=== PATIENT | female | born 1950 | race Caucasian/White ===

== ENCOUNTER 2016-05-09 13:47 | Outpatient (CLI) | payer MEDICARE, BC, OTHER | END 2016-05-09 23:59 | DX: E11.9 Type 2 diabetes mellitus without complications (principal) ==

== ENCOUNTER 2016-11-04 07:10 | Outpatient (CLI) | payer MEDICARE, BC, OTHER ==
[2016-11-04 19:03] LABS: CALCIUM 8.9 mg/dL (8.5-10.3); POTASSIUM 4.1 mmol/L (3.5-5.0)
[2016-11-04 19:23] LABS: HEMOGLOBIN A1C 0.83 g/dL
== END 2016-11-04 07:11 | disposition home or self-care (01) ==
LOC: LAB.WCP 07:10
PROVIDERS: ATTEND Family Medicine
DX: E11.9 Type 2 diabetes mellitus without complications (principal)
CPT/HCPCS: 36415; 80048; 82043; 83036

== ENCOUNTER 2017-01-09 13:14 | Outpatient (CLI) | payer MEDICARE, BC, OTHER ==
--- NOTE | 2017-01-09 15:54 | Mammography Report ---
DIGITAL DIAGNOSTIC LEFT MAMMOGRAM: 01/09/2017 CLINICAL INDICATION: Possible developing density left upper outer posterior breast. TECHNIQUE: Left true lateral and spot compression views. COMPARISON: 12/19/2016, 12/10/2015, 08/27/2014, 08/06/2013, 06/06/2012, 05/09/2011, 02/19/2010 FINDINGS: The left breast again demonstrates heterogeneously dense fibroglandular parenchyma. The d ensity in question dissipated on additional compression. No underlying mass lesion or architectural distortion is seen. IMPRESSION: BENIGN FINDINGS. RECOMMENDATION: Routine annual screening unless otherwise clinically indicated. BIRADS CATEGORY 2 - BENIGN FINDINGS. STANDARD QUALIFYING STATEMENTS 1. This examination was reviewed with the aid of Computer-Aided Detection (CAD). 2. A negative or benign imaging report should not delay biopsy if clinically suspicious findings are present. Consider surgical consultation if warranted. More than 5% of cancers are not identified by i maging. 3. Dense breasts may obscure an underlying neoplasm. JOB #: [id number] EXT JOB #:[id number]
== END 2017-01-09 13:15 | disposition home or self-care (01) ==
LOC: DI 13:14
PROVIDERS: ATTEND Family Medicine
DX: R92.8 Other abnormal and inconclusive findings on diagnostic imaging of breast (principal)

== ENCOUNTER 2017-01-25 14:40 | Outpatient (CLI) | payer MEDICARE, BC, OTHER | END 2017-01-25 14:41 | disposition home or self-care (01) | LOC: LAB.WCP 14:40 | PROVIDERS: ATTEND Family Medicine | DX: A04.71 Enterocolitis due to Clostridium difficile, recurrent (principal) | CPT/HCPCS: 87493 ==

== ENCOUNTER 2018-01-09 08:00 | Outpatient (CLI) | payer MEDICARE, BC, OTHER ==
[2018-01-09 19:24] LABS: BASOPHILS # (AUTO) 0.1 10^3/uL (0.0-0.1); BASOPHILS % (AUTO) 0.5 %; EOSINOPHILS # (AUTO) 0.2 10^3/uL (0.0-0.7); EOSINOPHILS % (AUTO) 2.2 %; HGB - HEMOGLOBIN 13.7 g/dL (12.0-16.0); LYMPHOCYTES # (AUTO) 2.9 10^3/uL (1.5-3.5); LYMPHOCYTES % (AUTO) 26.1 %; MEAN CORPUSCULAR HEMOGLOBIN 30.5 pg (27.0-31.0); MEAN CORPUSCULAR HGB CONC 32.3 g/dL (32.0-36.0); MEAN CORPUSCULAR VOLUME 94.3 fL (81.0-99.0); MEAN PLATELET VOLUME 7.8 fL (7.9-10.8); MONOCYTES # (AUTO) 0.7 10^3/uL (0.0-1.0); MONOCYTES % (AUTO) 6.3 %; NEUTROPHILS # (AUTO) 7.3 10^3/uL (1.5-6.6); NEUTROPHILS % (AUTO) 64.9 %; PLT - PLATELET COUNT 279 10^3/uL (130-450); RED BLOOD COUNT 4.51 10^6/uL (4.20-5.40); RED CELL DISTRIBUTION WIDTH 13.9 % (12.0-15.0); WHITE BLOOD COUNT 11.2 x10^3/uL (4.8-10.8)
[2018-01-09 19:45] LABS: ALBUMIN 3.6 g/dL (3.2-5.5); ALBUMIN/GLOBULIN RATIO 0.9 (1.0-2.2); ALKALINE PHOSPHATASE 113 IU/L (42-121); ALT ALANINE AMINOTRANSFERASE 40 IU/L (10-60); AST ASPARTATE AMINOTRANSFERASE 52 IU/L (10-42); BILIRUBIN,TOTAL 1.3 mg/dL (0.2-1.0); BUN - BLOOD UREA NITROGEN 12 mg/dL (6-20); CALCIUM 8.5 mg/dL (8.5-10.3); CARBON DIOXIDE - CO2 27 mmol/L (21-32); CHLORIDE 102 mmol/L (101-111); CHOL/HDL RATIO 2.7 (<4.4); CHOLESTEROL 170 mg/dL; CREATININE 0.9 mg/dL (0.4-1.0); GFR - MDRD 62 (>89); GLUCOSE 130 mg/dL (70-100); HDL CHOLESTEROL 62 mg/dL; LDL CHOLESTEROL,CALCULATED 84 mg/dL; LDL/HDL RATIO 1.4 (<4.4); SODIUM 138 mmol/L (135-145); TOTAL PROTEIN 7.7 g/dL (6.7-8.2); VLDL CHOLESTEROL 24 mg/dL
[2018-01-09 19:57] LABS: HB2 TOTAL 14.5 g/dL; HEMOGLOBIN A1C 1.03 g/dL; HEMOGLOBIN A1C % 8.6 % (4.6-6.2)
== END 2018-01-09 23:59 | disposition home or self-care (01) ==
LOC: LAB.WCP 08:00
PROVIDERS: ATTEND Family Medicine
DX: E11.9 Type 2 diabetes mellitus without complications (principal)
CPT/HCPCS: 36415; 80053; 80061; 82043; 83036; 83721; 84443; 85025

== ENCOUNTER 2018-02-16 09:39 | Outpatient (CLI) | payer MEDICARE, BC, OTHER ==
--- NOTE | 2018-02-19 09:15 | Mammography Report ---
Reason: SCREENING MAMMO Procedure Date: 02/16/2018 Accession Number: [id number] / [id number] Procedure: GUS - Screening Mammo w/Daniel CPT Code: FULL RESULT: EXAM: Screening Mammo w/Daniel DATE: 02/16/2018 10:18 AM CLINICAL HISTORY: Screening encounter. History of nulliparity. Family history of breast cancer in a sister at the age of 51. TECHNIQUE: Bilateral CC and MLO views were obtained. COMPARISON: 01/09/2017 through 08/08/2013. FINDINGS: The breasts demonstrate scattered fibroglandular densities bilaterally. There are coarse typically benign calcifications. No suspicious masses, clustered microcalcifications, or regions of architectural distortion are identified. IMPRESSION: Benign findings RECOMMENDATION: Routine annual screening unless otherwise clinically indicated. BIRADS CATEGORY 2: Benign findings STANDARD QUALIFYING STATEMENTS: 1. This examination was not reviewed with the aid of Computer-Aided Detection (CAD). 2. A negative or benign imaging report should not preclude biopsy if clinically suspicious findings are present. 3. Dense breasts may obscure an underlying neoplasm. 4. This examination was reviewed with the aid of 3D breast imaging (tomosynthesis).
== END 2018-02-16 09:40 | disposition home or self-care (01) ==
LOC: DI 09:39
DX: Z12.31 Encounter for screening mammogram for malignant neoplasm of breast (principal); Z80.3 Family history of malignant neoplasm of breast
CPT/HCPCS: 77063; 77067

== ENCOUNTER 2018-04-11 11:10 | Outpatient (CLI) | payer MEDICARE, BC, OTHER ==
[2018-04-11 19:25] LABS: HB2 TOTAL 15.5 g/dL; HEMOGLOBIN A1C 1.15 g/dL; HEMOGLOBIN A1C % 8.9 % (4.6-6.2)
[2018-04-11 19:27] LABS: CALCIUM 8.9 mg/dL (8.5-10.3)
== END 2018-04-11 23:59 | disposition home or self-care (01) ==
LOC: LAB.WCP 11:10
PROVIDERS: ATTEND Family Medicine
DX: E11.9 Type 2 diabetes mellitus without complications (principal)
CPT/HCPCS: 36415; 80048; 83036

== ENCOUNTER 2018-04-30 09:00 | Outpatient (CLI) | payer MEDICARE, BC, OTHER ==
[2018-04-30 19:36] LABS: CALCIUM 8.9 mg/dL (8.5-10.3); CREATININE 1.2 mg/dL (0.4-1.0)
== END 2018-04-30 09:01 | disposition home or self-care (01) ==
LOC: LAB.WCP 09:00
PROVIDERS: ATTEND Family Medicine
DX: I10 Essential (primary) hypertension (principal)
CPT/HCPCS: 36415; 80048

== ENCOUNTER 2018-06-27 08:00 | Outpatient (CLI) | payer MEDICARE, BC, OTHER ==
[2018-06-27 19:03] LABS: HB2 TOTAL 13.8 g/dL; HEMOGLOBIN A1C 1.16 g/dL; HEMOGLOBIN A1C % 9.8 % (4.6-6.2)
[2018-06-27 19:04] LABS: ALBUMIN 3.8 g/dL (3.2-5.5); BILIRUBIN,TOTAL 0.9 mg/dL (0.2-1.0); CALCIUM 9.1 mg/dL (8.5-10.3); CREATININE 1.3 mg/dL (0.4-1.0); TOTAL PROTEIN 7.6 g/dL (6.7-8.2)
== END 2018-06-27 08:01 | disposition home or self-care (01) ==
LOC: LAB.WCP 08:00
PROVIDERS: ATTEND Family Medicine
DX: E11.65 Type 2 diabetes mellitus with hyperglycemia (principal)
CPT/HCPCS: 36415; 80053; 83036

== ENCOUNTER 2018-09-12 | Day surgery (SDC) | payer MEDICARE, BC, OTHER | END 2018-09-12 13:40 | disposition home or self-care (01) | PROC: 0DBN8ZZ Excision of Sigmoid Colon, Via Natural or Artificial Opening Endoscopic (ICD-10-PCS; principal; 2018-09-12) | DX: Z12.11 Encounter for screening for malignant neoplasm of colon (principal); D12.5 Benign neoplasm of sigmoid colon; G47.30 Sleep apnea, unspecified; E11.9 Type 2 diabetes mellitus without complications; I10 Essential (primary) hypertension; Z79.4 Long term (current) use of insulin; F43.10 Post-traumatic stress disorder, unspecified; Z90.49 Acquired absence of other specified parts of digestive tract | CPT/HCPCS: 45380; J7120 ==

== ENCOUNTER 2018-09-20 12:29 | Outpatient (CLI) | payer MEDICARE, BC, OTHER ==
[2018-09-20 18:46] LABS: BASOPHILS % (AUTO) 0.3 %; EOSINOPHILS # (AUTO) 0.2 10^3/uL (0.0-0.7); EOSINOPHILS % (AUTO) 1.5 %; HGB - HEMOGLOBIN 12.5 g/dL (12.0-16.0); LYMPHOCYTES # (AUTO) 2.1 10^3/uL (1.5-3.5); LYMPHOCYTES % (AUTO) 20.4 %; MEAN CORPUSCULAR HEMOGLOBIN 30.4 pg (27.0-31.0); MEAN CORPUSCULAR HGB CONC 30.9 g/dL (32.0-36.0); MEAN CORPUSCULAR VOLUME 98.5 fL (81.0-99.0); MEAN PLATELET VOLUME 9.4 fL (7.9-10.8); MONOCYTES # (AUTO) 0.6 10^3/uL (0.0-1.0); MONOCYTES % (AUTO) 5.6 %; NEUTROPHILS # (AUTO) 7.3 10^3/uL (1.5-6.6); NEUTROPHILS % (AUTO) 71.8 %; PLT - PLATELET COUNT 277 10^3/uL (130-450); RED BLOOD COUNT 4.11 10^6/uL (4.20-5.40); RED CELL DISTRIBUTION WIDTH 12.9 % (12.0-15.0); WHITE BLOOD COUNT 10.2 x10^3/uL (4.8-10.8)
[2018-09-20 19:04] LABS: ALBUMIN 3.8 g/dL (3.2-5.5); ALKALINE PHOSPHATASE 122 IU/L (42-121); ALT ALANINE AMINOTRANSFERASE 38 IU/L (10-60); AST ASPARTATE AMINOTRANSFERASE 39 IU/L (10-42); BILIRUBIN,TOTAL 0.9 mg/dL (0.2-1.0); BUN - BLOOD UREA NITROGEN 19 mg/dL (6-20); CALCIUM 9.1 mg/dL (8.5-10.3); CARBON DIOXIDE - CO2 27 mmol/L (21-32); CHLORIDE 102 mmol/L (101-111); CHOL/HDL RATIO 2.7 (<4.4); CHOLESTEROL 155 mg/dL; CREATININE 1.3 mg/dL (0.4-1.0); GFR - MDRD 41 (>89); GLUCOSE 134 mg/dL (70-100); HDL CHOLESTEROL 57 mg/dL; LDL CHOLESTEROL,CALCULATED 79 mg/dL; LDL/HDL RATIO 1.4 (<4.4); SODIUM 140 mmol/L (135-145); TOTAL PROTEIN 7.7 g/dL (6.7-8.2); VLDL CHOLESTEROL 19 mg/dL
[2018-09-20 19:16] LABS: HB2 TOTAL 13.6 g/dL; HEMOGLOBIN A1C 0.95 g/dL; HEMOGLOBIN A1C % 8.5 % (4.6-6.2)
[2018-09-20 20:19] LABS: CREATININE,URINE 64.5 mg/dL; MICROALBUM/CREATININE RATIO,UR 6.2 ug/mg (<30.0); MICROALBUMIN,URINE 0.4 mg/dL (0-300.0)
== END 2018-09-20 23:59 | disposition home or self-care (01) ==
LOC: LAB.WCP 12:29
PROVIDERS: ATTEND Family Medicine
DX: E11.9 Type 2 diabetes mellitus without complications (principal)
CPT/HCPCS: 36415; 80053; 80061; 82043; 82570; 83036; 83721; 85025

== ENCOUNTER 2018-12-19 11:38 | Outpatient (CLI) | payer MEDICARE, BC, OTHER ==
[2018-12-19 19:27] LABS: HEMOGLOBIN A1C 0.99 g/dL; HEMOGLOBIN A1C % 9.1 % (4.6-6.2)
[2018-12-19 19:28] LABS: CREATININE 1.4 mg/dL (0.4-1.0)
== END 2018-12-19 23:59 | disposition home or self-care (01) ==
LOC: LAB.WCP 11:38
PROVIDERS: ATTEND Family Medicine
DX: E11.65 Type 2 diabetes mellitus with hyperglycemia (principal)
CPT/HCPCS: 36415; 80048; 83036

== ENCOUNTER 2019-03-20 12:31 | Outpatient (CLI) | payer MEDICARE, BC, OTHER ==
[2019-03-20 19:39] LABS: HB2 TOTAL 12.6 g/dL; HEMOGLOBIN A1C 0.73 g/dL; HEMOGLOBIN A1C % 7.5 % (4.6-6.2)
[2019-03-20 19:48] LABS: ALBUMIN 3.8 g/dL (3.2-5.5); ALKALINE PHOSPHATASE 128 IU/L (42-121); ALT ALANINE AMINOTRANSFERASE 28 IU/L (10-60); AST ASPARTATE AMINOTRANSFERASE 35 IU/L (10-42); BILIRUBIN,TOTAL 1.3 mg/dL (0.2-1.0); BUN - BLOOD UREA NITROGEN 19 mg/dL (6-20); CALCIUM 8.7 mg/dL (8.5-10.3); CARBON DIOXIDE - CO2 25 mmol/L (21-32); CHLORIDE 99 mmol/L (101-111); CHOL/HDL RATIO 2.9 (<4.4); CHOLESTEROL 164 mg/dL; CREATININE 1.6 mg/dL (0.4-1.0); CREATININE,URINE 274.6 mg/dL; GFR - MDRD 32 (>89); GLUCOSE 171 mg/dL (70-100); HDL CHOLESTEROL 56 mg/dL; LDL CHOLESTEROL,CALCULATED 87 mg/dL; LDL/HDL RATIO 1.6 (<4.4); MICROALBUM/CREATININE RATIO,UR 17.5 ug/mg (<30.0); MICROALBUMIN,URINE 4.8 mg/dL (0-300.0); SODIUM 137 mmol/L (135-145); TOTAL PROTEIN 7.5 g/dL (6.7-8.2); VLDL CHOLESTEROL 21 mg/dL
== END 2019-03-20 23:59 | disposition home or self-care (01) ==
LOC: LAB.WCP 12:31
PROVIDERS: ATTEND Family Medicine
DX: E11.65 Type 2 diabetes mellitus with hyperglycemia (principal)
CPT/HCPCS: 36415; 80053; 80061; 82043; 82570; 83036; 83721

== ENCOUNTER 2019-04-05 10:52 | Outpatient (CLI) | payer MEDICARE, BC, OTHER ==
--- NOTE | 2019-04-16 09:56 | Mammography Report ---
Reason: ROUTINE MAMMO Procedure Date: 04/05/2019 Accession Number: [id number] / [id number] Procedure: MGN - Screening Mammo w/Daniel CPT Code: Final Report FULL RESULT: EXAM: Screening Mammo w/Daniel DATE: 04/05/2019 11:29 AM CLINICAL HISTORY: Screening encounter. History of nulliparity. Family history of breast cancer in a sister at the age of 51. TECHNIQUE: (B) - Bilateral CC and MLO views were obtained. Right laterally exaggerated CC view is obtained. COMPARISON: 02/16/2018 through 06/06/2012. PARENCHYMAL PATTERN: (D) - The breast(s) demonstrate(s) heterogeneously dense fibroglandular parenchyma. FINDINGS: There are no suspicious masses, calcifications, or areas of distortion. IMPRESSION: Negative examination. BI-RADS category 1. RECOMMENDATION: (ANNUAL) - Recommend routine annual screening mammography. BI-RADS CATEGORY: (1) - Negative. STANDARD QUALIFYING STATEMENTS: 1. This examination was not reviewed with the aid of Computer-Aided Detection (CAD). 2. A negative or benign imaging report should not preclude biopsy if clinically suspicious findings are present. 3. Dense breasts may obscure an underlying neoplasm. 4. This examination was reviewed with the aid of 3D breast imaging (tomosynthesis).
== END 2019-04-05 10:53 | disposition home or self-care (01) ==
LOC: DI.N 10:52
DX: Z12.31 Encounter for screening mammogram for malignant neoplasm of breast (principal); Z80.3 Family history of malignant neoplasm of breast
CPT/HCPCS: 77063; 77067

== ENCOUNTER 2019-06-18 08:00 | Outpatient (CLI) | payer MEDICARE, BC, OTHER ==
[2019-06-18 13:25] LABS: CALCIUM 8.6 mg/dL (8.5-10.3); CREATININE 1.6 mg/dL (0.4-1.0)
[2019-06-18 13:46] LABS: HB2 TOTAL 13.4 g/dL; HEMOGLOBIN A1C 0.66 g/dL; HEMOGLOBIN A1C % 6.7 % (4.6-6.2)
== END 2019-06-18 23:59 | disposition home or self-care (01) ==
LOC: LAB.WCP 08:00
PROVIDERS: ATTEND Family Medicine
DX: E11.65 Type 2 diabetes mellitus with hyperglycemia (principal)
CPT/HCPCS: 36415; 80048; 83036

== ENCOUNTER 2019-09-20 07:00 | Outpatient (CLI) | payer MEDICARE, BC, OTHER ==
[2019-09-20 18:29] LABS: BASOPHILS # (AUTO) 0.1 10^3/uL (0.0-0.1); BASOPHILS % (AUTO) 0.7 %; EOSINOPHILS # (AUTO) 0.3 10^3/uL (0.0-0.7); EOSINOPHILS % (AUTO) 2.6 %; HGB - HEMOGLOBIN 12.9 g/dL (12.0-16.0); LYMPHOCYTES # (AUTO) 1.7 10^3/uL (1.5-3.5); LYMPHOCYTES % (AUTO) 16.3 %; MEAN CORPUSCULAR HEMOGLOBIN 30.6 pg (27.0-31.0); MEAN CORPUSCULAR HGB CONC 31.1 g/dL (32.0-36.0); MEAN CORPUSCULAR VOLUME 98.6 fL (81.0-99.0); MEAN PLATELET VOLUME 9.6 fL (7.9-10.8); MONOCYTES # (AUTO) 0.7 10^3/uL (0.0-1.0); MONOCYTES % (AUTO) 6.5 %; NEUTROPHILS # (AUTO) 7.8 10^3/uL (1.5-6.6); NEUTROPHILS % (AUTO) 73.5 %; PLT - PLATELET COUNT 294 10^3/uL (130-450); RED BLOOD COUNT 4.21 10^6/uL (4.20-5.40); RED CELL DISTRIBUTION WIDTH 13.2 % (12.0-15.0); WHITE BLOOD COUNT 10.6 x10^3/uL (4.8-10.8)
[2019-09-20 19:03] LABS: ALBUMIN 3.6 g/dL (3.2-5.5); ALBUMIN/GLOBULIN RATIO 0.9 (1.0-2.2); ALKALINE PHOSPHATASE 147 IU/L (42-121); ALT ALANINE AMINOTRANSFERASE 20 IU/L (10-60); AST ASPARTATE AMINOTRANSFERASE 24 IU/L (10-42); BILIRUBIN,TOTAL 0.8 mg/dL (0.2-1.0); BUN - BLOOD UREA NITROGEN 24 mg/dL (6-20); CALCIUM 8.7 mg/dL (8.5-10.3); CARBON DIOXIDE - CO2 28 mmol/L (21-32); CHLORIDE 99 mmol/L (101-111); CHOL/HDL RATIO 2.9 (<4.4); CHOLESTEROL 165 mg/dL; CREATININE 1.7 mg/dL (0.4-1.0); GLUCOSE 143 mg/dL (70-100); HDL CHOLESTEROL 56 mg/dL; LDL CHOLESTEROL,CALCULATED 88 mg/dL; LDL/HDL RATIO 1.6 (<4.4); SODIUM 134 mmol/L (135-145); TOTAL PROTEIN 7.6 g/dL (6.7-8.2); VLDL CHOLESTEROL 21 mg/dL
[2019-09-20 19:16] LABS: HB2 TOTAL 13.9 g/dL; HEMOGLOBIN A1C 0.63 g/dL; HEMOGLOBIN A1C % 6.3 % (4.6-6.2)
== END 2019-09-20 23:59 | disposition home or self-care (01) ==
LOC: LAB.WCP 07:00
PROVIDERS: ATTEND Family Medicine
DX: E11.9 Type 2 diabetes mellitus without complications (principal)
CPT/HCPCS: 36415; 80053; 80061; 83036; 83721; 85025

== ENCOUNTER 2019-11-01 07:00 | Outpatient (CLI) | payer MEDICARE, BC, OTHER | END 2019-11-01 23:59 | disposition home or self-care (01) | LOC: LAB.R 07:00 | PROVIDERS: ATTEND Family Medicine | DX: R35.0 Frequency of micturition (principal) | CPT/HCPCS: 87086 ==

== ENCOUNTER 2019-12-19 08:00 | Outpatient (CLI) | payer MEDICARE, BC, OTHER ==
[2019-12-19 18:52] LABS: CALCIUM 8.7 mg/dL (8.5-10.3); CREATININE 1.7 mg/dL (0.4-1.0)
[2019-12-19 19:08] LABS: MICROALBUM/CREATININE RATIO,UR 3.8 ug/mg (<30.0); MICROALBUMIN,URINE 0.7 mg/dL (0-300.0)
[2019-12-19 20:02] LABS: HEMOGLOBIN A1c% 6.1 % (4.27-6.07)
== END 2019-12-19 23:59 | disposition home or self-care (01) ==
LOC: LAB.WCP 08:00
PROVIDERS: ATTEND Family Medicine
DX: E11.9 Type 2 diabetes mellitus without complications (principal)
CPT/HCPCS: 36415; 80048; 82043; 82570; 83036

== ENCOUNTER 2020-05-14 07:00 | Outpatient (CLI) | payer MEDICARE, BC, OTHER ==
[2020-05-14 17:39] LABS: BASOPHILS # (AUTO) 0.1 10^3/uL (0.0-0.1); BASOPHILS % (AUTO) 0.6 %; EOSINOPHILS # (AUTO) 0.2 10^3/uL (0.0-0.7); EOSINOPHILS % (AUTO) 2.1 %; HCT - HEMATOCRIT 40.7 % (37.0-47.0); HGB - HEMOGLOBIN 12.8 g/dL (12.0-16.0); LYMPHOCYTES # (AUTO) 2.7 10^3/uL (1.5-3.5); LYMPHOCYTES % (AUTO) 25.8 %; MEAN CORPUSCULAR HEMOGLOBIN 30.3 pg (27.0-31.0); MEAN CORPUSCULAR HGB CONC 31.4 g/dL (32.0-36.0); MEAN CORPUSCULAR VOLUME 96.2 fL (81.0-99.0); MEAN PLATELET VOLUME 9.4 fL (7.9-10.8); MONOCYTES # (AUTO) 0.8 10^3/uL (0.0-1.0); MONOCYTES % (AUTO) 7.9 %; NEUTROPHILS # (AUTO) 6.7 10^3/uL (1.5-6.6); NEUTROPHILS % (AUTO) 63.2 %; PLT - PLATELET COUNT 291 10^3/uL (130-450); RED BLOOD COUNT 4.23 10^6/uL (4.20-5.40); RED CELL DISTRIBUTION WIDTH 13.2 % (12.0-15.0); WHITE BLOOD COUNT 10.6 x10^3/uL (4.8-10.8)
[2020-05-14 18:07] LABS: ALBUMIN 3.9 g/dL (3.2-5.5); ALBUMIN/GLOBULIN RATIO 1.1 (1.0-2.2); ALKALINE PHOSPHATASE 143 IU/L (42-121); ALT ALANINE AMINOTRANSFERASE 19 IU/L (10-60); AST ASPARTATE AMINOTRANSFERASE 24 IU/L (10-42); BILIRUBIN,TOTAL 0.9 mg/dL (0.2-1.0); BUN - BLOOD UREA NITROGEN 25 mg/dL (6-20); CALCIUM 9.1 mg/dL (8.5-10.3); CARBON DIOXIDE - CO2 28 mmol/L (21-32); CHLORIDE 102 mmol/L (101-111); CHOL/HDL RATIO 2.8 (<4.4); CHOLESTEROL 165 mg/dL; CREATININE 1.8 mg/dL (0.4-1.0); GFR - MDRD 28 (>89); GLUCOSE 89 mg/dL (70-100); HDL CHOLESTEROL 60 mg/dL; LDL CHOLESTEROL,CALCULATED 87 mg/dL; LDL/HDL RATIO 1.5 (<4.4); POTASSIUM 4.4 mmol/L (3.5-5.0); SODIUM 138 mmol/L (135-145); TOTAL PROTEIN 7.6 g/dL (6.7-8.2); TRIGLYCERIDES 92 mg/dL; VLDL CHOLESTEROL 18 mg/dL
[2020-05-14 18:13] LABS: THYROID STIMULATING HORMONE 2.22 uIU/mL (0.34-5.60)
[2020-05-14 20:28] LABS: ESTIMATED AVERAGE GLUCOSE 143 mg/dL (70-100); HEMOGLOBIN A1c% 6.6 % (4.27-6.07)
== END 2020-05-14 23:59 | disposition home or self-care (01) ==
LOC: LAB.WCP 07:00
PROVIDERS: ATTEND Family Medicine
DX: E11.22 Type 2 diabetes mellitus with diabetic chronic kidney disease (principal); N18.30 Chronic kidney disease, stage 3 unspecified
CPT/HCPCS: 36415; 80053; 80061; 81001; 82043; 82570; 83036; 83721; 84443; 85025

== ENCOUNTER 2020-05-18 07:00 | Outpatient (CLI) | payer MEDICARE, BC, OTHER ==
[2020-05-18 18:59] LABS: BILIRUBIN,URINE NEGATIVE (NEGATIVE); GLUCOSE, URINE (UA) NEGATIVE (NEGATIVE); KETONES,URINE (UA) NEGATIVE (NEGATIVE); LEUKOCYTE ESTERASE, URINE MODERATE (NEGATIVE); NITRITE,URINE NEGATIVE (NEGATIVE); OCCULT BLOOD,URINE NEGATIVE (NEGATIVE); PH,URINE 5.5 PH (5.0-7.5); PROTEIN,URINE NEGATIVE (NEGATIVE); UROBILINOGEN,URINE 0.2 (NORMAL) E.U./dL (NORMAL)
[2020-05-18 19:02] LABS: CLARITY,URINE CLOUDY (CLEAR)
[2020-05-18 19:10] LABS: BACTERIA,URINE Many /HPF (None Seen); RBC,URINE 0-5 /HPF (0-5); SQUAMOUS EPITHELIAL CELL,UR MANY Squamous (<= Few); WBC,URINE >25 /HPF (0-5)
[2020-05-18 19:24] LABS: CREATININE,URINE 267.1 mg/dL; MICROALBUM/CREATININE RATIO,UR 15.7 ug/mg (<30.0); MICROALBUMIN,URINE 4.2 mg/dL (0-300.0)
== END 2020-05-18 23:59 | disposition home or self-care (01) ==
LOC: LAB.WCP 07:00
PROVIDERS: ATTEND Family Medicine
DX: E11.22 Type 2 diabetes mellitus with diabetic chronic kidney disease (principal); N18.30 Chronic kidney disease, stage 3 unspecified
CPT/HCPCS: 81001; 82043; 82570

== ENCOUNTER 2020-06-08 12:57 | Outpatient (CLI) | payer MEDICARE, BC, OTHER ==
--- NOTE | 2020-06-08 14:15 | DEXA Report ---
PROCEDURE: Dexa Spine and/or Hip INDICATIONS: OSTEOPENIA TECHNIQUE: Dual energy x-ray absorptiometry (DXA) was performed on a Deenty System. Regions measur ed are the AP Spine, femoral neck, and if needed forearm. COMPARISON: None. FINDINGS: Lumbar Spine: Bone Mineral Density 1.063 g/cm/cm,T score -1.0, compared to -0.8 Left Hip: Bone Mineral Density 0.837 g/cm/cm,T score -1.4, compared to -0.7 Left Femoral Neck: Bone Mineral Density 0.804 g/cm/cm, T score -1.7, compared to -1.0 (T score greater or equal to -1.0: NORMAL) (T score from -1.1 to -2.4: OSTEOPENIA) (T score less than or equal to -2.5 to: OSTEOPOROSIS) Impression: 1. Mild to moderate osteopenia within the left hip and femoral neck, progressive compared to prior ex am. Borderline osteopenia within the lumbar spine, also progressive. Patients with diagnosis of osteoporosis or osteopenia should have regular bone mineral density assess ment. For those eligible for Medicare, routine testing is allowed once every 2 years. Testing frequ ency can be increased for patients who have rapidly progressing disease or for those who are receivin g medical therapy to restore bone mass. Reviewed by: Radha Briseno MD on 06/08/2020 1:14 PM PABLO Approved by: Radha Briseno MD on 06/08/2020 1:14 PM PABLO Station ID: [id number]
== END 2020-06-08 12:58 | disposition home or self-care (01) ==
LOC: DI 12:57
PROVIDERS: ATTEND Family Medicine
DX: M85.89 Other specified disorders of bone density and structure, multiple sites (principal)

== ENCOUNTER 2020-06-29 14:11 | Outpatient (CLI) | payer MEDICARE, BC, OTHER ==
--- NOTE | 2020-06-30 12:18 | Mammography Report ---
BILATERAL DIGITAL SCREENING MAMMOGRAM 3D/2D: 06/29/2020 CLINICAL: Family history of breast cancer. Routine screening. Comparison is made to exams dated: 04/05/2019 mammogram, 02/16/2018 mammogram, 01/09/2017 mammogram, mammogram, 12/10/2015 mammogram, and 08/27/2014 mammogram - [facility]. The tissue of both breasts is heterogeneously dense. This may lower the sensitivity of mammography. There are benign calcifications in both breasts. No significant masses, calcifications, or other findings are seen in either breast. There has been no significant interval change. IMPRESSION: BENIGN There is no mammographic evidence of malignancy. A 1 year screening mammogram is recommended. This exam was interpreted at Station ID: [id number]. NOTE: For mammograms, a report in lay terms will be sent to the patient. Approximately 15% of breast malignancies will not be visualized mammographically. In the management of a palpable breast mass, a negative mammogram must not discourage biopsy of a clinically suspicious lesion. Electronically Signed By: Efrain Sifuentes M.D. ddp/penrad:06/29/2020 15:33:24 ACR BI-RADS Category 2: Benign Finding(s) 3342F PARENCHYMAL PATTERN: (D) - The breast(s) demonstrate(s) heterogeneously dense fibroglandular [place] ott. BI-RADS CATEGORY: (2) - 2 RECOMMENDATION: (ANNUAL) - Recommend routine annual screening mammography. [id number] 1 year screening LATERALITY: (B)
== END 2020-06-29 14:12 | disposition home or self-care (01) ==
LOC: DI 14:11
DX: Z12.31 Encounter for screening mammogram for malignant neoplasm of breast (principal); Z80.3 Family history of malignant neoplasm of breast

== ENCOUNTER 2020-08-14 13:18 | Outpatient (CLI) | payer MEDICARE, BC, OTHER ==
[2020-08-14 18:09] LABS: CALCIUM 8.5 mg/dL (8.5-10.3); CREATININE 1.5 mg/dL (0.4-1.0); POTASSIUM 4.1 mmol/L (3.5-5.0)
[2020-08-14 20:33] LABS: ESTIMATED AVERAGE GLUCOSE 117 mg/dL (70-100); HEMOGLOBIN A1c% 5.7 % (4.27-6.07)
== END 2020-08-14 23:59 | disposition home or self-care (01) ==
LOC: LAB.WCP 13:18
PROVIDERS: ATTEND Family Medicine
DX: E11.9 Type 2 diabetes mellitus without complications (principal)
CPT/HCPCS: 36415; 80048; 83036

== ENCOUNTER 2021-03-03 12:25 | Outpatient (CLI) | payer MEDICARE, BC, OTHER ==
[2021-03-03 18:29] LABS: BASOPHILS # (AUTO) 0.1 10^3/uL (0.0-0.1); BASOPHILS % (AUTO) 0.4 %; EOSINOPHILS # (AUTO) 0.3 10^3/uL (0.0-0.7); EOSINOPHILS % (AUTO) 2.2 %; HCT - HEMATOCRIT 40.5 % (37.0-47.0); LYMPHOCYTES # (AUTO) 1.8 10^3/uL (1.5-3.5); LYMPHOCYTES % (AUTO) 15.9 %; MEAN CORPUSCULAR HEMOGLOBIN 30.6 pg (27.0-31.0); MEAN CORPUSCULAR HGB CONC 32.1 g/dL (32.0-36.0); MEAN CORPUSCULAR VOLUME 95.3 fL (81.0-99.0); MEAN PLATELET VOLUME 9.1 fL (7.9-10.8); MONOCYTES # (AUTO) 0.9 10^3/uL (0.0-1.0); MONOCYTES % (AUTO) 7.6 %; NEUTROPHILS # (AUTO) 8.2 10^3/uL (1.5-6.6); NEUTROPHILS % (AUTO) 73.5 %; PLT - PLATELET COUNT 312 10^3/uL (130-450); RED BLOOD COUNT 4.25 10^6/uL (4.20-5.40); RED CELL DISTRIBUTION WIDTH 13.2 % (12.0-15.0); WHITE BLOOD COUNT 11.1 x10^3/uL (4.8-10.8)
[2021-03-03 19:00] LABS: ALBUMIN 3.5 g/dL (3.2-5.5); ALBUMIN/GLOBULIN RATIO 0.9 (1.0-2.2); ALKALINE PHOSPHATASE 116 IU/L (42-121); ALT ALANINE AMINOTRANSFERASE 22 IU/L (10-60); AST ASPARTATE AMINOTRANSFERASE 23 IU/L (10-42); BILIRUBIN,TOTAL 0.8 mg/dL (0.2-1.0); BUN - BLOOD UREA NITROGEN 16 mg/dL (6-20); CARBON DIOXIDE - CO2 27 mmol/L (21-32); CHLORIDE 102 mmol/L (101-111); CHOL/HDL RATIO 2.6 (<4.4); CHOLESTEROL 163 mg/dL; CREATININE 1.5 mg/dL (0.4-1.0); GFR - MDRD 34 (>89); GLUCOSE 93 mg/dL (70-100); HDL CHOLESTEROL 62 mg/dL; LDL CHOLESTEROL,CALCULATED 82 mg/dL; LDL/HDL RATIO 1.3 (<4.4); POTASSIUM 4.1 mmol/L (3.5-5.0); SODIUM 138 mmol/L (135-145); TOTAL PROTEIN 7.4 g/dL (6.7-8.2); TRIGLYCERIDES 93 mg/dL; VLDL CHOLESTEROL 19 mg/dL
[2021-03-04 17:23] LABS: ESTIMATED AVERAGE GLUCOSE 128 mg/dL (70-100); HEMOGLOBIN A1c% 6.1 % (4.27-6.07)
== END 2021-03-03 23:59 | disposition home or self-care (01) ==
LOC: LAB.WCP 12:25
PROVIDERS: ATTEND Family Medicine
DX: E11.9 Type 2 diabetes mellitus without complications (principal)
CPT/HCPCS: 36415; 80053; 80061; 83036; 83721; 85025

== ENCOUNTER 2021-03-09 13:37 | Outpatient (CLI) | payer MEDICARE, BC, OTHER ==
--- NOTE | 2021-03-09 14:52 | XRAY Report ---
PROCEDURE: Chest 2 View X-Ray INDICATIONS: DYSPNEA ON EXERTION TECHNIQUE: 2 view(s) of the chest. COMPARISON: 10/13/2014. FINDINGS: Surgical changes and devices: None. Lungs and pleura: No pleural effusions or pneumothorax. Lungs are clear. Mediastinum: Mediastinal contours are normal. Heart size is normal. Bones and chest wall: No suspicious bony abnormalities. Soft tissues appear unremarkable. IMPRESSION: Stable examination of the chest. No acute cardiopulmonary abnormalities or focal airspac e disease. Reviewed by: Wiliam Reich MD on 03/09/2021 2:50 PM PST Approved by: Wiliam Reich MD on 03/09/2021 2:50 PM PST Station ID: [id number]
== END 2021-03-09 13:38 | disposition home or self-care (01) ==
LOC: DI.N 13:37
PROVIDERS: ATTEND Family Medicine
DX: R06.09 Other forms of dyspnea (principal)

== ENCOUNTER 2021-05-03 08:00 | Outpatient (CLI) | payer MEDICARE, BC, OTHER ==
[2021-05-03 22:50] LABS: BACTERIAL VAGINOSIS DNA NEGATIVE (NEGATIVE); CANDIDA GLABRATA DNA NEGATIVE (NEGATIVE); CANDIDA GROUP DNA NEGATIVE (NEGATIVE); CANDIDA KRUSEI DNA NEGATIVE (NEGATIVE); TRICHOMONAS VAGINALIS DNA NEGATIVE (NEGATIVE)
== END 2021-05-03 23:59 ==
LOC: LAB.N 08:00
PROVIDERS: ATTEND Family Medicine
DX: N76.0 Acute vaginitis (principal)
CPT/HCPCS: 87661; 87801

== ENCOUNTER 2021-05-05 12:15 | Outpatient (CLI) | payer MEDICARE, BC, OTHER ==
[2021-05-05 17:53] LABS: BASOPHILS # (AUTO) 0.1 10^3/uL (0.0-0.1); BASOPHILS % (AUTO) 0.5 %; EOSINOPHILS # (AUTO) 0.2 10^3/uL (0.0-0.7); EOSINOPHILS % (AUTO) 1.8 %; HCT - HEMATOCRIT 39.9 % (37.0-47.0); LYMPHOCYTES % (AUTO) 15.7 %; MEAN CORPUSCULAR HEMOGLOBIN 30.7 pg (27.0-31.0); MEAN CORPUSCULAR HGB CONC 32.6 g/dL (32.0-36.0); MEAN CORPUSCULAR VOLUME 94.3 fL (81.0-99.0); MEAN PLATELET VOLUME 9.1 fL (7.9-10.8); MONOCYTES # (AUTO) 0.8 10^3/uL (0.0-1.0); MONOCYTES % (AUTO) 6.4 %; NEUTROPHILS # (AUTO) 9.8 10^3/uL (1.5-6.6); NEUTROPHILS % (AUTO) 75.1 %; PLT - PLATELET COUNT 298 10^3/uL (130-450); RED BLOOD COUNT 4.23 10^6/uL (4.20-5.40); RED CELL DISTRIBUTION WIDTH 13.2 % (12.0-15.0)
[2021-05-05 18:15] LABS: ALBUMIN 3.7 g/dL (3.2-5.5); BILIRUBIN,TOTAL 0.8 mg/dL (0.2-1.0); CALCIUM 8.9 mg/dL (8.5-10.3); CREATININE 1.6 mg/dL (0.4-1.0); POTASSIUM 4.2 mmol/L (3.5-5.0); TOTAL PROTEIN 7.4 g/dL (6.7-8.2)
[2021-05-05 20:57] LABS: ESTIMATED AVERAGE GLUCOSE 126 mg/dL (70-100)
== END 2021-05-05 12:16 | disposition home or self-care (01) ==
LOC: LAB.N 12:15
PROVIDERS: ATTEND Family Medicine
DX: E11.9 Type 2 diabetes mellitus without complications (principal)
CPT/HCPCS: 36415; 80053; 83036; 85025

== ENCOUNTER 2021-10-16 14:54 | Outpatient (CLI) | payer MEDICARE, BC, OTHER ==
[2021-10-16 19:07] LABS: BASOPHILS # (AUTO) 0.1 10^3/uL (0.0-0.1); BASOPHILS % (AUTO) 0.4 %; EOSINOPHILS # (AUTO) 0.3 10^3/uL (0.0-0.7); EOSINOPHILS % (AUTO) 2.1 %; HCT - HEMATOCRIT 40.2 % (37.0-47.0); HGB - HEMOGLOBIN 12.6 g/dL (12.0-16.0); LYMPHOCYTES # (AUTO) 2.2 10^3/uL (1.5-3.5); LYMPHOCYTES % (AUTO) 14.9 %; MEAN CORPUSCULAR HEMOGLOBIN 29.4 pg (27.0-31.0); MEAN CORPUSCULAR HGB CONC 31.3 g/dL (32.0-36.0); MEAN CORPUSCULAR VOLUME 93.9 fL (81.0-99.0); MEAN PLATELET VOLUME 9.1 fL (7.9-10.8); MONOCYTES % (AUTO) 6.7 %; NEUTROPHILS % (AUTO) 75.5 %; PLT - PLATELET COUNT 291 10^3/uL (130-450); RED BLOOD COUNT 4.28 10^6/uL (4.20-5.40); RED CELL DISTRIBUTION WIDTH 14.3 % (12.0-15.0); WHITE BLOOD COUNT 14.5 x10^3/uL (4.8-10.8)
== END 2021-10-16 14:55 | disposition home or self-care (01) ==
LOC: LAB.N 14:54
PROVIDERS: ATTEND Physician Assistant
DX: D72.829 Elevated white blood cell count, unspecified (principal)
CPT/HCPCS: 36415; 85025

== ENCOUNTER 2021-10-20 13:29 | Outpatient (CLI) | payer MEDICARE, BC, OTHER ==
--- NOTE | 2021-10-21 12:34 | Mammography Report ---
BILATERAL DIGITAL SCREENING MAMMOGRAM 3D/2D: 10/20/2021 CLINICAL: Routine screening. Comparison is made to exams dated: 06/29/2020 mammogram, 04/05/2019 mammogram, 02/16/2018 mammogram, mammogram, and 12/19/2016 mammogram - [facility]. Both breasts are heterogeneously dense, which may obscure small masses (category c / 51-75% glandula r tissue). There are benign calcifications in both breasts. No significant masses, calcifications, or other findings are seen in either breast. There has been no significant interval change. IMPRESSION: BENIGN There is no mammographic evidence of malignancy. A 1 year screening mammogram is recommended. This exam was interpreted at Station ID: [id number]. NOTE: For mammograms, a report in lay terms will be sent to the patient. Approximately 15% of breast malignancies will not be visualized mammographically. In the management of a palpable breast mass, a negative mammogram must not discourage biopsy of a clinically suspicious lesion. Electronically Signed By: Wiliam richards/[place]:10/20/2021 17:48:07 ACR BI-RADS Category 2: Benign Finding(s) 3342F PARENCHYMAL PATTERN: (D) - The breast(s) demonstrate(s) heterogeneously dense fibroglandular vikram ott. BI-RADS CATEGORY: (2) - 2 RECOMMENDATION: (ANNUAL) - Recommend routine annual screening mammography. [id number] 1 year screening LATERALITY: (B)
== END 2021-10-20 13:30 | disposition home or self-care (01) ==
LOC: DI 13:29
PROVIDERS: ATTEND Physician Assistant
DX: Z12.31 Encounter for screening mammogram for malignant neoplasm of breast (principal)

== ENCOUNTER 2021-11-22 08:00 | Outpatient (CLI) | payer MEDICARE, BC, OTHER ==
--- NOTE | 2021-11-22 10:30 | XRAY Report ---
PROCEDURE: Ribs w/PA Chest RT INDICATIONS: R SIDED RIB PX TECHNIQUE: 2 views of the right ribs were acquired, along with a single view chest. COMPARISON: Chest radiographs 03/09/2021. FINDINGS: Surgical changes and devices: A radiopaque marker overlies the area of clinical concern. Surgical cli ps project over the right upper quadrant of the abdomen. Bones and chest wall: No fractures or dislocations. No suspicious bony lesions. Overlying soft tis sues appear unremarkable. Lungs and pleura: No pleural effusions or pneumothorax. Lungs appear clear. Mediastinum: Mediastinal contours appear normal. Heart size is normal. IMPRESSION: No acute displaced rib fracture visualized. CT of the chest could be obtained if clinically indicated . Reviewed by: Neel Navas MD on 11/22/2021 10:29 AM PDT Approved by: Neel Navas MD on 11/22/2021 10:29 AM PDT Station ID: [id number]
== END 2021-11-22 23:59 | disposition home or self-care (01) ==
LOC: DI.N 08:00
PROVIDERS: ATTEND Registered Nurse
DX: R07.81 Pleurodynia (principal)

== ENCOUNTER 2021-12-01 10:49 | Outpatient (CLI) | payer MEDICARE, BC, OTHER ==
--- NOTE | 2021-12-02 07:32 | Ultrasound Report ---
PROCEDURE: Retroperitoneal INDICATIONS: STAGE G3B KIDNEY DISEASE TECHNIQUE: Real-time scanning was performed of the retroperitoneal organs, with image documentation. COMPARISON: Ultrasound abdomen 03/27/2013. FINDINGS: Kidneys: Kidneys are normal in size. Right kidney measures 9.4 cm long; left kidney measures 10 poi nt cm long. Right renal cortical thickness is 1.5 cm; left renal cortical thickness is 1.5 cm. No h ydronephrosis, or nephrolithiasis. There is a focus of echogenicity within the superior right renal p ole measuring 1 cm. This was not identified on prior exam. Bladder: Pre-void bladder volume is 127 mL. Post-void residual is 50 mL. Pre-void images demonstra te no intraluminal masses or stones. On pre-void images, bilateral ureteral jets are noted with colo r Doppler interrogation. (Of note, ureteral jets may not be detectable in up to 25% of cases due to insufficient differences in specific gravity between ureteral and bladder urine). Miscellaneous: No free abdominal fluid. 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 Reviewed by: Radha Briseno MD on 12/02/2021 7:31 AM PDT Approved by: Radha Briseno MD on 12/02/2021 7:31 AM PDT Station ID: [id number]
== END 2021-12-01 10:50 | disposition home or self-care (01) ==
LOC: DI 10:49
PROVIDERS: ATTEND Internal Medicine Nephrology
DX: N18.32 Chronic kidney disease, stage 3b (principal)

== ENCOUNTER 2021-12-10 15:27 | Outpatient (CLI) | payer MEDICARE, BC, OTHER ==
--- NOTE | 2021-12-10 17:12 | CT Report ---
PROCEDURE: CHEST WO INDICATIONS: RIGHT SIDED RIB PAIN TECHNIQUE: Noncontrast 1mm axial images were acquired from the pulmonary apices to the posterior costophrenic an gles. Axial 5 mm soft tissue kernel reconstructions were performed as well as 8 mm axial MIP and cor onal and sagittal 5 mm reformations. For radiation dose reduction, the following was used: automate d exposure control, adjustment of mA and/or kV according to patient size. COMPARISON: None FINDINGS: Image quality: Trace motion degradation Lungs and pleura: No dense consolidation, pleural effusion, or pneumothorax. Suspected atelectasis an d scarring scattered in the lungs. Multiple pulmonary nodules are present, for which follow-up imaging could be obtained on the optional basis for high-risk patients in one year. For example right lower lobe nodule measures up to 5 mm on lung series image 179. Mediastinum, heart, and esophagus: No hiatal hernia. Normal heart size. No pathologic adenopathy or t horacic aortic aneurysm. Chest wall and thyroid: No actionable thyroid nodule identified. No axillary adenopathy Upper abdomen: Cholecystectomy. Surgical changes in the upper abdomen:. Ventral rectus diastasis part ially seen. Bones: Degenerative changes of the spine. There is a healing fracture of the anterolateral right eigh th rib. IMPRESSION: Healing fracture of the anterolateral right eighth rib. Multiple pulmonary nodules, recommendation above. Incidental findings above. Reviewed by: Ryan Salmeron MD on 12/10/2021 5:11 PM PDT Approved by: Ryan Salmeron MD on 12/10/2021 5:11 PM PDT Station ID: [id number]
== END 2021-12-10 15:28 | disposition home or self-care (01) ==
LOC: DI 15:27
PROVIDERS: ATTEND Nurse Practitioner
DX: S22.31XA Fracture of one rib, right side, initial encounter for closed fracture (principal); R91.8 Other nonspecific abnormal finding of lung field

== ENCOUNTER 2021-12-15 11:12 | Outpatient (CLI) | payer MEDICARE, BC, OTHER ==
[2021-12-15 17:55] LABS: BASOPHILS # (AUTO) 0.1 10^3/uL (0.0-0.1); BASOPHILS % (AUTO) 0.4 %; EOSINOPHILS # (AUTO) 0.3 10^3/uL (0.0-0.7); EOSINOPHILS % (AUTO) 1.9 %; HCT - HEMATOCRIT 42.3 % (37.0-47.0); HGB - HEMOGLOBIN 13.4 g/dL (12.0-16.0); LYMPHOCYTES % (AUTO) 15.6 %; MEAN CORPUSCULAR HEMOGLOBIN 30.1 pg (27.0-31.0); MEAN CORPUSCULAR HGB CONC 31.7 g/dL (32.0-36.0); MEAN CORPUSCULAR VOLUME 95.1 fL (81.0-99.0); MONOCYTES # (AUTO) 0.8 10^3/uL (0.0-1.0); MONOCYTES % (AUTO) 6.4 %; NEUTROPHILS # (AUTO) 9.8 10^3/uL (1.5-6.6); NEUTROPHILS % (AUTO) 75.3 %; RED BLOOD COUNT 4.45 10^6/uL (4.20-5.40); RED CELL DISTRIBUTION WIDTH 13.9 % (12.0-15.0)
[2021-12-15 17:59] LABS: CALCIUM 9.2 mg/dL (8.5-10.3); CREATININE 1.6 mg/dL (0.4-1.0); PHOSPHORUS 4.8 mg/dL (2.5-4.6); POTASSIUM 4.4 mmol/L (3.5-5.0)
[2021-12-15 18:06] LABS: CREATININE,URINE 79.1 mg/dL; PROTEIN/CREATININE RATIO,URINE 0.1 (<=0.2)
[2021-12-15 18:23] LABS: PLATELET ESTIMATE, MANUAL NORMAL (130-450,000) (NORMAL); PLATELET MORPHOLOGY PLATELET CLUMPING (NORMAL); SLIDE REVIEW? Indicated
[2021-12-15 20:50] LABS: ESTIMATED AVERAGE GLUCOSE 131 mg/dL (70-100); HEMOGLOBIN A1c% 6.2 % (4.27-6.07)
== END 2021-12-15 11:13 | disposition home or self-care (01) ==
LOC: LAB.N 11:12
PROVIDERS: ATTEND Internal Medicine Nephrology
DX: N05.9 Unspecified nephritic syndrome with unspecified morphologic changes (principal); N25.81 Secondary hyperparathyroidism of renal origin; E83.30 Disorder of phosphorus metabolism, unspecified; R80.9 Proteinuria, unspecified; D70.9 Neutropenia, unspecified; D63.1 Anemia in chronic kidney disease; E11.9 Type 2 diabetes mellitus without complications; D72.829 Elevated white blood cell count, unspecified
CPT/HCPCS: 36415; 80048; 82043; 82570; 83036; 83970; 84100; 84156; 85025

== ENCOUNTER 2022-01-24 11:25 | Outpatient (CLI) | payer MEDICARE, BC, OTHER ==
--- NOTE | 2022-01-24 14:04 | XRAY Report ---
PROCEDURE: Ankle 3 View RT INDICATIONS: RIGHT FOOT AND ANKLE PAIN TECHNIQUE: 3 views of the ankle were acquired. COMPARISON: Right ankle radiographs 04/24/2017 FINDINGS: Bones: No acute fractures or dislocations. Ankle mortise is normally aligned. No suspicious bony l esions. Small posterior and plantar calcaneal enthesophyte. Minimal degenerative spurring at the talo navicular joint. Soft tissues: Soft tissue edema is seen surrounding the ankle. IMPRESSION: No acute osseous abnormality. If there is clinical concern or persistent symptoms, addit ional imaging such as repeat radiographs or advanced imaging (e.g. CT, MRI) may be helpful for furthe r evaluation. Reviewed by: Neel Howe MD on 01/24/2022 2:02 PM PST Approved by: Neel Howe MD on 01/24/2022 2:02 PM PST Station ID: [id number]
--- NOTE | 2022-01-24 14:05 | XRAY Report ---
PROCEDURE: Foot 3 View RT INDICATIONS: RIGHT FOOT AND ANKLE PAIN TECHNIQUE: 3 views of the foot were acquired. COMPARISON: Right ankle radiographs 04/24/2017. FINDINGS: Bones: No acute fractures or dislocations. No suspicious bony lesions. Mild scattered degenerative changes. Posterior and plantar calcaneal enthesophytes are present. Soft tissues: Mild soft tissue edema is seen at the lateral hindfoot. IMPRESSION: No acute osseous abnormality. If there is clinical concern or persistent symptoms, additional imaging such as repeat radiographs or advanced imaging (e.g. CT, MRI) may be helpful for further evaluation. Reviewed by: Neel Howe MD on 01/24/2022 2:03 PM PST Approved by: Neel Howe MD on 01/24/2022 2:03 PM PST Station ID: [id number]
== END 2022-01-24 11:26 | disposition home or self-care (01) ==
LOC: DI 11:25
PROVIDERS: ATTEND Podiatrist
DX: M25.571 Pain in right ankle and joints of right foot (principal); M79.671 Pain in right foot

== ENCOUNTER 2022-03-04 15:07 | Outpatient (CLI) | payer MEDICARE, BC, OTHER ==
[2022-03-04 15:46] VITALS: BP 126/70
--- NOTE | 2022-03-04 15:46 | SLEEP CARE CONSULTATION ---
Information from patient questionnaire entered by Faviola Hawkins. I have reviewed and concur with the information entered by Faviola Hawkins. This document represents the service I personally performed and the decisions made by me, Angeline Faye ARNP. History of Present Illness Service Date and Time: 03/04/2022 1507 Reason for Visit: New patient Chief Complaint: reports: Insomnia, Snoring, Excessive daytime sleepiness, Fatigue, Frequent awakenings at night Date of Onset: 30YRS Usual bedtime: 11PM-2AM Time it takes to fall asleep: quickly Snores at night: Yes Observed to quit breathing while asleep: No Sleeps alone due to snoring: No Number of times waking at night: 4-6 Reasons for waking at night: reports: Bathroom, Other (UNKNOWN, CATS NIGHTMARES). denies: Choking, Snoring, Gasping for air Toss, Turn, or Twitch while sleeping: Yes Recalls having dreams: Yes Usually gets out of bed at: 7182-4866 AM Feels refreshed in the morning: No Morning headache: No Sleepy or fatigued during the day: Yes Ever fallen asleep while driving: No (limits driving) Takes day naps: Yes (most days; usually 20 minutes to 1 hour) Dreams during day naps: Yes Prior sleep studies: Yes Year and Where: [place]? [facility] 15-20 YRS AGO Additional HPI information: I had the pleasure of seeing THOMAS HAIRSTON today regarding the possibility of her having a sleep disorder. Her current complaints are insomnia, snoring, excessive daytimes sleepiness, fatigue and frequent night awakenings. She states it "takes 10 hours to get 5 hours of sleep". She has a history of previous diagnosis but was unable to tolerate this at the time. She retested and it was not diagnostic for sleep apnea. She states she can fall asleep right away but will only sleep 2 hours at a time. She states she has RLS and is on medication. The RLS and fibromyalgia makes it difficult for her to sleep well. It can take 1-2 hours to get back to sleep. She will then sleep again for 1-2 hours. She gets her best sleep between 6-10AM. She states that she sleeps in her recliner because she sleeps there better with her fibromyalgia. 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 Patient is and lives in [place]. Have you smoked in the past 12 months: No Alcohol use: No Caffeine use: Yes Caffeine amount and frequency: 2 DAILY LUNCH AND DINNER Family History Family history of sleep disordered breathing: No (DON'T KNOW) Allergies and Home Medications Known drug allergies: No Drug allergies reviewed: Yes (as listed in EMR) Home medication list reviewed: Yes (see list updated in EMR) Review of Systems Cardiovascular: reports: high blood pressure, have to sleep sitting up Gastrointestinal: reports: diarrhea. denies: heartburn Urinary: reports: frequency Neurological: denies: headaches Psychiatric: reports: depression, other (PTSD). denies: anxiety Ear/Nose/Throat: reports: wisdom teeth removed. denies: tonsillectomy Endocrine: reports: sluggishness Musculoskeletal: reports: joint pain, neck pain, back pain, joint swelling Immunologic: reports: rash, allergies to food or environment Physical Exam Vital signs obtained and entered by: FAVIOLA Earl MA Blood Pressure: 126/70 (LEFT RM) Cuff size: regular Heart Rate: 67 O2 Saturation: 95 Height: 5 ft 6.5 in Weight: 225 lb 9.6 oz Body Mass Index: 35.9 BMI Classification: Obese Neck circumference: 16.75 Mouth and throat: narrow oropharynx Soft palate: long Hard palate: normal Uvula: normal Uvula visualization: 0% Mallampati Class IV Tongue: enlarged in size with teeth stewart on lateral edges Tonsils: small Neck: normal w/o lymphadenopathy or thyromegaly Heart: regular rate and rhythm Lungs: clear bilaterally Impression and Plan 1. Suspected Obstructive Sleep Apnea-Hypopnea Syndrome, as previously diagnosed and as suggested by a history of loud and irregular snoring, morning headache, frequent awakening during the night, unrefreshed sleep, and excessive daytime sleepiness. Narrow oropharynx and obesity are common predisposing factors for obstructive sleep apnea-hypopnea syndrome. I recommend proceeding to polysomnography to confirm the diagnosis and to assess severity. If the patient has significant sleep disordered breathing, a manual CPAP titration study will also be performed to find the optimal treatment pressure. I informed the patient of what the sleep studies involve and after some discussion, obtained agreement to proceed. The pathophysiology of obstructive sleep apnea-hypopnea syndrome was discussed with the patient and health risks of cardiovascular and cerebrovascular disease if not treated. Risks of drowsy driving discussed in detail and patient advised to avoid long distance driving and to picker/puller at the first sign of drowsiness. Patient agreed to plan. * Schedule polysomnography * Avoid long distance driving or driving when feeling sleepy. * Avoid alcohol, sedative and muscle relaxant around bedtime. * Attempt to lose weight. * Review instructions provided by trained office staff on how to prepare for the sleep study. * Return for follow-up after sleep study completed. Counseling Topics: Weight loss health impact Visit Type: In Office Time Spent with Patient (minutes): 30 Provider Statement: I spent 100% of the Face to Face Visit with the patient with greater than 50% spent counseling the patient and coordination of care.
== END 2022-03-04 15:08 | disposition home or self-care (01) ==
LOC: SC 15:07
PROVIDERS: ATTEND Nurse Practitioner Family
DX: G47.33 Obstructive sleep apnea (adult) (pediatric) (principal); E66.9 Obesity, unspecified; Z68.35 Body mass index [BMI] 35.0-35.9, adult
CPT/HCPCS: 99203; G0463; 99212

== ENCOUNTER 2022-04-05 20:40 | Outpatient (CLI) | payer MEDICARE, BC, OTHER | END 2022-04-05 20:41 | disposition home or self-care (01) | LOC: SC 20:40 | PROVIDERS: ATTEND Nurse Practitioner Family | DX: G47.33 Obstructive sleep apnea (adult) (pediatric) (principal); R09.02 Hypoxemia; G47.61 Periodic limb movement disorder; Z68.35 Body mass index [BMI] 35.0-35.9, adult | CPT/HCPCS: 95810 ==

== ENCOUNTER 2022-04-18 11:19 | Outpatient (CLI) | payer MEDICARE, BC, OTHER ==
[2022-04-18 12:17] VITALS: BP 124/68
--- NOTE | 2022-04-18 12:17 | SLEEP CARE CONSULTATION ---
Information from patient questionnaire entered by Zulma Sosa LPN. I have reviewed and concur with the information entered by Zulma Sosa LPN. This document represents the service I personally performed and the decisions made by me, Ashwin Willson MD, [facility]. History of Present Illness Service Date and Time: 04/18/2022 1119 Initial [place] Sleepiness Scale score: 11 (03/03/22) Current [place] Sleepiness Scale score: 12 (04/18/2022) Additional HPI information: Mrs. Humphrey returned for follow up of the sleep study she had on 04/05/2022. The polysomnography showed that the patient had slightly reduced sleep efficiency due to a few awakenings during the night. The sleep architecture was abnormal for sleep fragmentation and reduced amount of time spent in REM and slow wave sleep (N3). Respiratory monitoring showed moderate obstructive sleep apnea-hypopnea (AHI = 16.7) associated with frequent arousals, oxyhemoglobin desaturation and moderate hypoxia (erick oxygen saturation of 71%). Baseline oxygen saturation was also low at 89%. The respiratory events occurred mainly during REM sleep. The patient only slept supine during this study (supine AHI = 17.0; non-supine = 0.00). Snore was light to moderate in intensity. There was moderate periodic leg movement of sleep contributing to the sleep fragmentation. Cardiac rhythm was normal sinus rhythm without significant arrhythmia. No abnormal behavior (parasomnia) observed during the night. Sleep Study - Results Prior sleep studies: Yes Year and Where: [place] [id number]? [facility] 15-20 YRS AGO Allergies and Home Medications Known drug allergies: Yes Drug allergies reviewed: Yes Home medication list reviewed: Yes Allergy and home medication list: Allergies amoxicillin Allergy (Verified 03/04/22 15:18) Rash chlorzoxazone [From Parafon Forte] Allergy (Verified 03/04/22 15:18) Rash Sulfa (Sulfonamide Antibiotics) Allergy (Verified 03/04/22 15:18) Rash codeine Adverse Reaction (Verified 03/04/22 15:18) depressed lisinopril Adverse Reaction (Verified 03/04/22 15:18) cough metformin Adverse Reaction (Verified 03/04/22 15:18) severe diarrhea Physical Exam Vital signs obtained and entered by: ZULMA Moseley LPN Blood Pressure: 124/68 Cuff size: wrist Heart Rate: 76 O2 Saturation: 97 Height: 5 ft 6.5 in Weight: 499 lb 9.079 oz Body Mass Index: 79.4 BMI Classification: Morbidly Obese Impression and Plan IMPRESSION: 1. Obstructive Sleep Apnea-Hypopnea Syndrome, moderate, associated with moderate hypoxemia and sleep fragmentation. This despite the patient sleeping in a recliner. She is willing to try CPAP again. Her also uses a CPAP. She does complain of excessive daytime sleepiness. PLAN: 1. Prescription made for an autoCPAP, heated humidifier, and related supplies. 2. Return in one month for follow up. I will assess his response and compliance at that time. Prescriptions: Auto CPAP Follow up with Sleep Care in: 1-2 months Time Spent with Patient (minutes): 15
== END 2022-04-18 11:20 | disposition home or self-care (01) ==
LOC: SC 11:19
PROVIDERS: ATTEND Internal Medicine Pulmonary Disease
DX: G47.33 Obstructive sleep apnea (adult) (pediatric) (principal); E66.01 Morbid (severe) obesity due to excess calories; Z68.45 Body mass index [BMI] 70 or greater, adult
CPT/HCPCS: 99212; G0463

== ENCOUNTER 2022-07-01 09:50 | Outpatient (CLI) | payer MEDICARE, BC, OTHER ==
--- NOTE | 2022-07-01 10:35 | Sleep Patient Instructions ---
Sleep Center Visit Summary - Patient Visit Information Reason for Visit: CPAP therapy followup; 3 months - Patient Instructions Additional Instructions: You were here for follow up of CPAP therapy. You will be continued on CPAP therapy with pressure changed to 8-10 cmH2O. Please let us know if the pressure change is uncomfortable and we can make further adjustments of the pressure. You should follow up with sleep care in 1-2 months. You may contact us sooner for any questions or concerns. - Clinic Information Contact: [facility] [address] [place] [address] [email or web address] T: [phone]
[2022-07-01 10:42] VITALS: BP 122/64
--- NOTE | 2022-07-01 10:42 | SLEEP CARE CONSULTATION ---
Information from patient questionnaire entered by Faviola Hawkins. I have reviewed and concur with the information entered by Faviola Hawkins. This document represents the service I personally performed and the decisions made by me, Angeline Faye ARNP. History of Present Illness Service Date and Time: 07/01/2022 0950 Previous diagnosis: Moderate, Obstructive Sleep Apnea-Hypopnea Syndrome AHI: 16.7 (in 2022) Reason for follow up: first compliance Equipment type: CPAP (Resmed Airsense 11, s/u 04/2022) Equipment obtained from: Other ([facility]; got initial supplies) Mask style: Full face Mask brand: Navmii (Ceci, medium cushion) Backup mask available: No (will keep old mask when replaced) Last cushion change: 1 month Prior sleep studies: Yes Year and Where: [facility]? MISTY THAKUR 15-20 YRS AGO HPI additional information: THOMAS HAIRSTON was diagnosed to have moderate, AHI 16.7, obstructive sleep apnea- hypopnea syndrome and returned today for CPAP therapy first compliance follow-up. Sleep Study - Results Prior sleep studies: Yes Year and Where: [facility]? MISTY THAKUR 15-20 YRS AGO CPAP Compliance Data - Data Reviewed with Patient Average duration of nightly device use: 4 hours 15 minutes Compliance rate %: 70 (24/30 days used) Current pressure setting (cmH2O): 6-9 Average residual AHI: 2.1 Central apnea: 0.2 Obstructive apnea: 1.7 Hypopnea: 1.7 Subjective Missed days of use due to: reports: other (comfort; restless legs) Patient concerns: reports: dry mouth, nose, throat. denies: aerophagia, mask discomfort, air blowing in eyes, mask leak noise, condensation in mask/hose, nasal congestion, epistaxis Observed to snore while using device: No Current pressure setting perceived as: too low On therapy, patient: reports: other (no difference at this point) Initial [place] Sleepiness Scale score: 11 (03/03/22) Current [place] Sleepiness Scale score: 15 (07/01/22) Allergies and Home Medications Known drug allergies: Yes (as listed) Drug allergies reviewed: Yes Home medication list reviewed: Yes (no changes) Allergy and home medication list: Allergies amoxicillin Allergy (Verified 07/01/22 09:47) Rash chlorzoxazone [From Parafon Forte] Allergy (Verified 07/01/22 09:47) Rash Sulfa (Sulfonamide Antibiotics) Allergy (Verified 07/01/22 09:47) Rash codeine Adverse Reaction (Verified 07/01/22 09:47) depressed lisinopril Adverse Reaction (Verified 07/01/22 09:47) cough metformin Adverse Reaction (Verified 07/01/22 09:47) severe diarrhea Review of Systems Review of systems same as previous: Yes (no changes) Physical Exam Vital signs obtained and entered by: FAVIOLA Earl MA Blood Pressure: 122/64 (LEFT ARM) Cuff size: regular Heart Rate: 68 O2 Saturation: 95 Height: 5 ft 6.5 in Weight: 229 lb 9.6 oz Body Mass Index: 36.5 BMI Classification: Obese Impression and Plan 1. Obstructive Sleep Apnea-Hypopnea Syndrome, moderate, with good treatment compliance and good apnea control. She feels like she is getting less sleep since using the CPAP. She has reached compliance by wearing her device even when she is trying to go to sleep (watching TV, reading or on computer) to keep her compliance up. She does not feel the pressure in the mask when she puts it on and feels she could use more pressure initially. I will adjust her pressure to 8-10 cmH2O and increase ramp starting pressure to 6 cmH2O. I discussed with patient that she can adjust the ramp pressure as needed for comfort. We discussed strategies to help her sleep more with the mask on including: limiting naps to 15-20 minutes and no naps after 2 pm, replacing mask when she finds it off her face and getting up at same time in the morning. She voiced un derstanding and agreement with plan. Patient's apnea severity and rationale for treatment to reduce apnea, improve sleep quality and reduce cardiovascular and cerebrovascular events was reviewed. I also reviewed the benefit of consistent device use of CPAP for hypertension, diabetes, depression, fibromyalgia, RLS and PTSD. 2. Obesity, unspecified. Currently patients BMI is 36.5. Obesity increases the risk of apnea, CPAP pressure requirements and overall health risks especially cardiovascular and diabetes. Thus patient is advised to lose weight. * Change ramp starting pressure to 6 cmH2O * Change auto CPAP pressure to 8-10 cmH2O * Notify me if snoring with mask or feeling that the pressure is too much or too little * Attempt to lose weight * Call this office if any problems using CPAP * Return for follow up in 1-2 months, or sooner if concerns arise Counseling Topics: Spare mask, Weight loss health impact Visit Type: In Office Time Spent with Patient (minutes): 38 Provider Statement: I spent 100% of the Face to Face Visit with the patient with greater than 50% spent counseling the patient and coordination of care.
== END 2022-07-01 09:51 | disposition home or self-care (01) ==
LOC: SC 09:50
PROVIDERS: ATTEND Nurse Practitioner Family
DX: G47.33 Obstructive sleep apnea (adult) (pediatric) (principal); E66.9 Obesity, unspecified; Z68.36 Body mass index [BMI] 36.0-36.9, adult
CPT/HCPCS: 99213; G0463; 99212

== ENCOUNTER 2022-07-19 08:17 | Outpatient (CLI) | payer MEDICARE, BC, OTHER ==
[2022-07-19 11:49] LABS: BASOPHILS # (AUTO) 0.1 10^3/uL (0.0-0.1); BASOPHILS % (AUTO) 0.4 %; EOSINOPHILS # (AUTO) 0.3 10^3/uL (0.0-0.7); HCT - HEMATOCRIT 40.3 % (37.0-47.0); HGB - HEMOGLOBIN 12.6 g/dL (12.0-16.0); LYMPHOCYTES # (AUTO) 1.8 10^3/uL (1.5-3.5); MEAN CORPUSCULAR HEMOGLOBIN 29.5 pg (27.0-31.0); MEAN CORPUSCULAR HGB CONC 31.3 g/dL (32.0-36.0); MEAN CORPUSCULAR VOLUME 94.4 fL (81.0-99.0); MEAN PLATELET VOLUME 9.3 fL (7.9-10.8); MONOCYTES # (AUTO) 0.8 10^3/uL (0.0-1.0); MONOCYTES % (AUTO) 6.2 %; NEUTROPHILS # (AUTO) 9.9 10^3/uL (1.5-6.6); NEUTROPHILS % (AUTO) 76.9 %; PLT - PLATELET COUNT 283 10^3/uL (130-450); RED BLOOD COUNT 4.27 10^6/uL (4.20-5.40); RED CELL DISTRIBUTION WIDTH 13.8 % (12.0-15.0); WHITE BLOOD COUNT 12.8 x10^3/uL (4.8-10.8)
[2022-07-19 11:56] LABS: CALCIUM 8.7 mg/dL (8.5-10.3); CREATININE 1.6 mg/dL (0.4-1.0); POTASSIUM 4.4 mmol/L (3.5-5.0)
[2022-07-19 12:02] LABS: ESTIMATED AVERAGE GLUCOSE 126 mg/dL (70-100)
== END 2022-07-19 08:18 | disposition home or self-care (01) ==
LOC: LAB.N 08:17
PROVIDERS: ATTEND Physician Assistant
DX: E11.9 Type 2 diabetes mellitus without complications (principal)
CPT/HCPCS: 36415; 80048; 83036; 85025

== ENCOUNTER 2022-07-29 14:22 | Outpatient (CLI) | payer MEDICARE, BC, OTHER ==
--- NOTE | 2022-07-29 15:07 | SLEEP CARE CONSULTATION ---
Information from patient questionnaire entered by Faviola Hawkins. I have reviewed and concur with the information entered by Faviola Hawkins. This document represents the service I personally performed and the decisions made by me, Angeline Faye ARNP. History of Present Illness Service Date and Time: 07/29/2022 142 Previous diagnosis: Moderate, Obstructive Sleep Apnea-Hypopnea Syndrome AHI: 16.7 (in 03/2022) Reason for follow up: one month Equipment type: CPAP (RESMED Airsense 11) Equipment obtained from: Other ([facility]) Mask style: Nasal pillows Backup mask available: Yes (other mask) Prior sleep studies: Yes Year and Where: [facility]? [place] 15-20 YRS AGO HPI additional information: THOMAS HAIRSTON was diagnosed to have moderate, AHI 16.7, obstructive sleep apnea- hypopnea syndrome and returned today for CPAP therapy one month follow-up. Sleep Study - Results Prior sleep studies: Yes Year and Where: [facility]? [place] 15-20 YRS AGO CPAP Compliance Data - Data Reviewed with Patient Average duration of nightly device use: 3 hours 19 minutes Compliance rate %: 37 (18/30 days used) Current pressure setting (cmH2O): 8-10 Average residual AHI: 2 Central apnea: 0.3 Obstructive apnea: 1.5 Subjective Missed days of use due to: reports: mask issues Patient concerns: reports: mask discomfort, dry mouth, nose, throat. denies: aerophagia, air blowing in eyes, mask leak noise, condensation in mask/hose, nasal congestion, epistaxis, other (PTSD kicks in and she takes off) Observed to snore while using device: No Current pressure setting perceived as: comfortable On therapy, patient: reports: other (not sleeping well with CPAP use). denies: drowsiness while driving Initial [place] Sleepiness Scale score: 11 (03/03/22) Current [place] Sleepiness Scale score: 8 Allergies and Home Medications Known drug allergies: Yes (as listed) Drug allergies reviewed: Yes Home medication list reviewed: Yes (no changes) Allergy and home medication list: Allergies amoxicillin Allergy (Verified 07/28/22 20:24) Rash chlorzoxazone [From Parafon Forte] Allergy (Verified 07/28/22 20:24) Rash Sulfa (Sulfonamide Antibiotics) Allergy (Verified 07/28/22 20:24) Rash codeine Adverse Reaction (Verified 07/28/22 20:24) depressed lisinopril Adverse Reaction (Verified 07/28/22 20:24) cough metformin Adverse Reaction (Verified 07/28/22 20:24) severe diarrhea Review of Systems Review of systems same as previous: Yes (no changes) Physical Exam Vital signs obtained and entered by: Angeline Gross NP Blood Pressure: 108/69 Cuff size: wrist (left) Heart Rate: 69 O2 Saturation: 95 Height: 5 ft 6.5 in Weight: 229 lb 6.4 oz Body Mass Index: 36.4 BMI Classification: Obese Nasal exam: positive: erythema Impression and Plan 1. Obstructive Sleep Apnea-Hypopnea Syndrome, moderate, with poor treatment compliance and good apnea control. She has still been having struggles with being able to use the CPAP mask. She did try a nasal pillows mask with a chinstrap but the chinstrap was too loose to keep her mouth closed and she was unable to get comfortable using it. We discussed other options and she would like to see if she could tolerate an oral appliance. I will write for an oral appliance and gave her the information she needs to have one made for her by a dentist trained in these oral devices. We will follow-up with her after the oral appliance is completed and she has been using it for at least a month. She will call us for any other issues or concerns. Patient's apnea severity and rati onale for treatment to reduce apnea, improve sleep quality and reduce cardiovascular and cerebrovascular events was reviewed. I also reviewed the benefit of consistent device use of CPAP for hypertension, diabetes, depression, fibromyalgia, RLS and PTSD. 2. Obesity, unspecified. Currently patients BMI is 36.4. Obesity increases the risk of apnea, CPAP pressure requirements and overall health risks especially cardiovascular and diabetes. Thus patient is advised to lose weight. * Continue auto CPAP pressure at 8-10 cmH2O * Mask refitting for nasal mask * Chinstrap to use with nasal mask * Oral appliance * Notify me if snoring with mask or feeling that the pressure is too much or too little * Attempt to lose weight * Call this office if any problems using CPAP * Return for follow up in 3 months, or sooner if concerns arise Counseling Topics: Spare mask, Weight loss health impact Visit Type: In Office Time Spent with Patient (minutes): 23 Provider Statement: I spent 100% of the Face to Face Visit with the patient with greater than 50% spent counseling the patient and coordination of care.
[2022-07-29 15:10] VITALS: BP 108/69
== END 2022-07-29 14:23 | disposition home or self-care (01) ==
LOC: SC 14:22
PROVIDERS: ATTEND Nurse Practitioner Family
DX: G47.33 Obstructive sleep apnea (adult) (pediatric) (principal); E66.9 Obesity, unspecified; Z68.36 Body mass index [BMI] 36.0-36.9, adult
CPT/HCPCS: 99213; G0463; 99212

== ENCOUNTER 2022-08-07 13:37 | Emergency (ER) | payer MEDICARE, BC, OTHER ==
--- NOTE | 2022-08-07 14:11 | XRAY Report ---
PROCEDURE: Hip w/Pelvis 2-3V RT INDICATIONS: pain TECHNIQUE: AP pelvis with lateral view(s) of the right hip(s). COMPARISON: None. FINDINGS: Bones: No fractures or dislocations. No suspicious bony lesions. Soft tissues: No suspicious soft tissue calcifications or masses. IMPRESSION: No acute fracture. No osseous lesion. If symptoms and/or clinical suspicion for pathology continue, f urther assessment with repeat plain films, or advanced imaging (e.g., CT, MRI, or bone scan) is recom mended for further assessment. Reviewed by: Ryder Diaz MD on 08/07/2022 2:10 PM PDT Approved by: Ryder Diaz MD on 08/07/2022 2:10 PM PDT Station ID: [id number]
[2022-08-07] MEDS ORDERED: KETOROLAC 60 MG/2 ML VIAL IM STA (14:15)
[2022-08-07] MEDS ORDERED: HYDROmorphone 1 MG/ML CARPUJECT IM STA (14:15)
[2022-08-07] MEDS ORDERED: DEXAMETHASONE 10 MG/ML VIAL IM STA (14:15)
--- NOTE | 2022-08-07 14:28 | ED Physician Documentation ---
History of Present Illness - Stated complaint Stated Complaint: RT HIP PAIN - Chief complaint Chief Complaint: General - History obtained from History obtained from: Patient - Additonal information Additional information: The patient comes to the emergency department chief complaint of right low back pain that radiates toward her right hip. She states that it started yesterday morning, though she really does not have any clear trigger that she can identify. The patient has a longstanding history of low back issues and states she recently had a bone scan done at [facility], though she does not know the results. The patient denies any falls, repetitive motions, or heavy lifting. She denies any numbness or tingling in her lower extremities or any weakness. No pain shooting down her leg. She denies any loss of control of her bowels or bladder. She states that the pain seems to be worse when she stands up. She states the pain was more mild when it first started and felt like just a twinge in her low back but has progressively gotten worse. No other complaints at this time. PD PAST MEDICAL HISTORY - Past Medical History Cardiovascular: Hypertension Respiratory: Sleep apnea Endocrine/Autoimmune: Type 2 diabetes, HyPERthyroidism GI: Colon polyps, Chronic diarrhea, Hemorrhoids, Other : None HEENT: Chronic sinusitis Psych: Depression, Post traumatic stress disorder Musculoskeletal: Fibromyalgia Derm: Rosacea, Other - Past Surgical History General: Cholecystectomy, Appendectomy, Bowel surgery, Colonoscopy /[employer]: Hysterectomy HEENT: Other - Present Medications Home Medications: Ambulatory Orders Medication Instructions Recorded Confirmed Tramadol HCl [Ultram] 50 mg PO QID 08/30/18 07/01/22 atenoloL [Atenolol] 50 mg PO DAILY 08/30/18 07/01/22 Insulin Aspart [NovoLOG] 20 unit SUBQ TIDWM 01/29/19 07/01/22 Insulin Degludec [Tresiba 45 unit SUBQ QPM 01/29/19 07/01/22 Flextouch U-100] DULoxetine [Cymbalta] See Rx Instructions .ROUTE .COMPLEX 03/03/22 07/01/22 Losartan Potassium See Rx Instructions .ROUTE .COMPLEX 03/03/22 07/01/22 Risankizumab-Rzaa [Skyrizi Pen] See Rx Instructions .ROUTE .COMPLEX 03/03/22 07/01/22 Ropinirole HCl See Rx Instructions .ROUTE .COMPLEX 03/03/22 07/01/22 amLODIPine [Norvasc] See Rx Instructions .ROUTE .COMPLEX 03/03/22 07/01/22 HYDROcod/ACETAM 5/325 [Chandler 5/325] 1 - 2 tablet PO Q6H PRN #14 tablet 08/07/22 Ibuprofen [Motrin] 800 mg PO Q8H PRN #30 tablet 08/07/22 predniSONE [Deltasone] 10 mg PO [id number] #42 tab 08/07/22 - Allergies Allergies/Adverse Reactions: Allergies Allergy/AdvReac Type Severity Reaction Status Date / Time amoxicillin Allergy Rash Verified 07/28/22 20:24 chlorzoxazone Allergy Rash Verified 07/28/22 20:24 [From Parafon Forte] Sulfa (Sulfonamide Allergy Rash Verified 07/28/22 20:24 Antibiotics) codeine AdvReac depressed Verified 07/28/22 20:24 lisinopril AdvReac cough Verified 07/28/22 20:24 metformin AdvReac severe Verified 07/28/22 20:24 diarrhea - Social History Smoking Status: Never smoker PD ED PE NORMAL - Vitals Vital signs reviewed: Yes - General General: Alert and oriented X 3, No acute distress, Well developed/nourished - HEENT HEENT: Atraumatic, PERRL, EOMI, Moist mucous membranes - Neck Neck: Supple, no meningeal sign - Cardiac Cardiac: RRR, No murmur, Strong equal pulses - Respiratory Respiratory: No respiratory distress - Abdomen Abdomen: Soft, Non tender, Non distended - Back Back: No spinal TTP, Other (Tenderness palpation over the musculature to the right of the patient's lumbosacral spine. No sciatic joint tenderness.) - Derm Derm: Normal color, Warm and dry, No rash - Extremities Extremities: No deformity, No edema - Neuro Neuro: Alert and oriented X 3, No motor deficit, No sensory deficit, Other (Grossly intact) - Psych Psych: Normal mood, Normal affect Results - Vitals Vitals: Vital Signs - 24 hr 08/07/22 13:39 Temperature 36.2 C L Heart Rate 61 Respiratory 18 Rate Blood Pressure 151/74 H O2 Saturation 96 Oxygen O2 Source Room air - Rads (name of study) X-ray right hip Relevant Findings:: Final report received, See rad report (Negative) X-ray lumbar spine Relevant Findings:: Final report received, See rad report (No definite acute fractures; multilevel disc space narrowing and endplate osteophyte formation) PD Medical Decision Making - ED course Complexity details: reviewed results, re-evaluated patient, considered differential, d/w patient ED course: The patient was treated symptomatically in the emergency department with IM Toradol, Decadron, and Dilaudid, and worked up with x-rays of the lumbar spine and right hip. The patient was not found to have any acute findings with regard to the spine and hip, but was noted to have some degeneration in the spine. She was feeling improved symptomatically after the above medications and stated she did not want anything else in the emergency department. I did send prescriptions for her for symptomatic management at home and discussed that if she does not notice symptoms starting to improve in the next couple of weeks, she will need to follow-up with her primary care physician to discuss whether further work-up or treatment is needed. Departure - Departure Disposition: Home, Self Care Clinical Impression: Low back pain Qualifiers: Chronicity: acute Back pain laterality: right Sciatica presence: without sciatica Qualified Code(s): M54.50 - Low back pain, unspecified Condition: Stable Instructions: ED Neck Back Pain General Prescriptions: predniSONE [Deltasone] 10 mg PO [id number] #42 tab Ibuprofen [Motrin] 800 mg PO Q8H PRN #30 tablet PRN Reason: PAIN &/OR FEVER HYDROcod/ACETAM 5/325 [Chandler 5/325] 1 - 2 tablet PO Q6H PRN #14 tablet PRN Reason: Pain Comments: The x-rays of your spine shows some degeneration which is not surprising, considering your history of back problems. Your right hip x-ray series is unremarkable. I reviewed the bone scan you had done recently and this was performed on the left side. This did show some osteopenia of your left hip. Prescriptions for your medications have been electronically transmitted to [facility] in [place]. Since you have not had a distinct injury to cause your symptoms, you most likely just developed a flareup in your back from some seemingly innocent movement. This will most likely blow over on its own, given time. However, if after couple of weeks you do not notice any improvement whatsoever, then you should call your primary doctor's office to set up an appointment to discuss further intervention or work-up.
--- NOTE | 2022-08-07 14:34 | XRAY Report ---
PROCEDURE: Lumbar Spine 2 View INDICATIONS: pain TECHNIQUE: 2 views of the lumbar spine were acquired. COMPARISON: None. FINDINGS: Examination limited by body habitus. Bones: 5 [id number] vertebrae are present. There is normal bony alignment. No vertebral body compression fractures. No suspicious bony lesions. Multilevel disc space narrowing and endplate ost eophyte formation. Soft tissues: Overlying bowel gas pattern is normal. No suspicious soft tissue calcifications. IMPRESSION: No definite acute fracture. No osseous lesion. If symptoms and/or clinical suspicion for pathology continue, further assessment with repeat plain films, or advanced imaging (e.g., CT, MRI, or bone scan) is recommended for further assessment. Reviewed by: Ryder Diaz MD on 08/07/2022 2:33 PM PDT Approved by: Ryder Diaz MD on 08/07/2022 2:33 PM PDT Station ID: [id number]
[2022-08-07 16:18] VITALS: BP 132/57
== END 2022-08-07 16:15 | disposition home or self-care (01) ==
LOC: ED 13:37
DX: M54.50 Low back pain, unspecified (principal); I10 Essential (primary) hypertension; E11.9 Type 2 diabetes mellitus without complications; Z79.4 Long term (current) use of insulin
CPT/HCPCS: 72100; 73502; 96372; 99283; J1170

== ENCOUNTER 2022-08-11 10:30 | Outpatient (CLI) | payer MEDICARE, BC, OTHER ==
[2022-08-11 18:01] LABS: BASOPHILS % (AUTO) 0.1 %; HCT - HEMATOCRIT 42.5 % (37.0-47.0); HGB - HEMOGLOBIN 13.5 g/dL (12.0-16.0); LYMPHOCYTES % (AUTO) 10.7 %; MEAN CORPUSCULAR HEMOGLOBIN 29.7 pg (27.0-31.0); MEAN CORPUSCULAR HGB CONC 31.8 g/dL (32.0-36.0); MEAN CORPUSCULAR VOLUME 93.6 fL (81.0-99.0); MONOCYTES % (AUTO) 6.7 %; NEUTROPHILS % (AUTO) 81.7 %; PLT - PLATELET COUNT 347 10^3/uL (130-450); RED BLOOD COUNT 4.54 10^6/uL (4.20-5.40); RED CELL DISTRIBUTION WIDTH 13.6 % (12.0-15.0); WHITE BLOOD COUNT 20.3 x10^3/uL (4.8-10.8)
[2022-08-11 18:03] LABS: ABNORMAL LYMPHS % (MANUAL) 0 %; BAND NEUTROPHILS % (MANUAL) 0 %
[2022-08-11 18:10] LABS: ALBUMIN 3.5 g/dL (3.2-5.5); BILIRUBIN,TOTAL 0.8 mg/dL (0.2-1.0); CALCIUM 8.8 mg/dL (8.5-10.3); CREATININE 1.5 mg/dL (0.4-1.0); POTASSIUM 4.2 mmol/L (3.5-5.0); TOTAL PROTEIN 7.1 g/dL (6.7-8.2)
[2022-08-11 18:54] LABS: DIFFERENTIAL COMMENT MANUAL DIFFERENTIAL; LYMPHOCYTES # (MANUAL) 2.2 10^3/uL (1.5-3.5); LYMPHOCYTES % (MANUAL) 11 %; MONOCYTES # (MANUAL) 0.8 10^3/uL (0.0-1.0); NEUTROPHILS # (MANUAL) 17.3 10^3/uL (1.5-6.6); PLATELET ESTIMATE, MANUAL NORMAL (130-450,000) (NORMAL); PLATELET MORPHOLOGY NORMAL APPEARANCE (NORMAL); RBC MORPHOLOGY (MULTIPLE) NORMAL APPEARANCE (NORMAL)
== END 2022-08-11 10:45 | disposition home or self-care (01) ==
LOC: LAB.N 10:30
PROVIDERS: ATTEND Specialist
DX: M54.89 Other dorsalgia (principal)
CPT/HCPCS: 36415; 80053; 85025

== ENCOUNTER 2022-08-13 09:54 | Outpatient (CLI) | payer MEDICARE, BC, OTHER ==
[2022-08-13 19:05] LABS: BASOPHILS % (AUTO) 0.2 %; EOSINOPHILS % (AUTO) 0.2 %; HGB - HEMOGLOBIN 13.5 g/dL (12.0-16.0); MEAN CORPUSCULAR HEMOGLOBIN 29.4 pg (27.0-31.0); MEAN CORPUSCULAR HGB CONC 30.7 g/dL (32.0-36.0); MEAN CORPUSCULAR VOLUME 95.9 fL (81.0-99.0); NEUTROPHILS % (AUTO) 80.8 %; PLT - PLATELET COUNT 325 10^3/uL (130-450); RED BLOOD COUNT 4.59 10^6/uL (4.20-5.40); RED CELL DISTRIBUTION WIDTH 13.7 % (12.0-15.0); WHITE BLOOD COUNT 23.3 x10^3/uL (4.8-10.8)
[2022-08-13 19:22] LABS: ABNORMAL LYMPHS % (MANUAL) 0 %; BAND NEUTROPHILS % (MANUAL) 0 %
[2022-08-13 19:28] LABS: ALBUMIN 3.2 g/dL (3.2-5.5); ALBUMIN/GLOBULIN RATIO 0.9 (1.0-2.2); BILIRUBIN,TOTAL 0.5 mg/dL (0.2-1.0); CALCIUM 8.6 mg/dL (8.5-10.3); CREATININE 1.4 mg/dL (0.4-1.0); POTASSIUM 3.9 mmol/L (3.5-5.0); TOTAL PROTEIN 6.6 g/dL (6.7-8.2)
[2022-08-13 19:54] LABS: LYMPHOCYTES % (MANUAL) 9 %; MONOCYTES # (MANUAL) 1.2 10^3/uL (0.0-1.0); NEUTROPHILS # (MANUAL) 19.1 10^3/uL (1.5-6.6); PLATELET ESTIMATE, MANUAL NORMAL (130-450,000) (NORMAL); PLATELET MORPHOLOGY NORMAL APPEARANCE (NORMAL); RBC MORPHOLOGY (MULTIPLE) NORMAL APPEARANCE (NORMAL); REACTIVE LYMPHS % (MANUAL) 4 %
[2022-08-13 19:55] LABS: DIFFERENTIAL COMMENT MANUAL DIFFERENTIAL
== END 2022-08-13 09:55 | disposition home or self-care (01) ==
LOC: LAB.N 09:54
PROVIDERS: ATTEND Specialist
DX: M54.89 Other dorsalgia (principal)
CPT/HCPCS: 36415; 80053; 85025

== ENCOUNTER 2022-08-15 13:52 | Emergency (ER) | payer MEDICARE, BC, OTHER ==
[2022-08-15 13:59] VITALS: BP 154/69
--- NOTE | 2022-08-15 15:26 | ED Physician Documentation ---
History of Present Illness - Stated complaint Stated Complaint: RT HIP/BACK PX - Chief complaint Chief Complaint: General - History obtained from History obtained from: Patient - Additonal information Additional information: 72-year-old woman with history of psoriasis on Skyrizi, fibromyalgia and diabetes. She had severe right low back pain and was seen by my partner about a week ago and started on steroids. She followed up with her physician who performed blood work and subsequently her white count which is noted to be always somewhat elevated in the 12-14 range was up at 20 and then rechecked a few days later at 23. She has only very mild back pain now. No fevers, chills, urinary complaints, rashes, sore throat, cough, or abdominal pain. PD PAST MEDICAL HISTORY - Past Medical History Cardiovascular: Hypertension Respiratory: Sleep apnea Endocrine/Autoimmune: Type 2 diabetes, HyPERthyroidism GI: Colon polyps, Chronic diarrhea, Hemorrhoids, Other : None HEENT: Chronic sinusitis Psych: Depression, Post traumatic stress disorder Musculoskeletal: Fibromyalgia Derm: Rosacea, Other - Past Surgical History General: Cholecystectomy, Appendectomy, Bowel surgery, Colonoscopy /[employer]: Hysterectomy HEENT: Other - Present Medications Home Medications: Ambulatory Orders Medication Instructions Recorded Confirmed Tramadol HCl [Ultram] 50 mg PO QID 08/30/18 07/01/22 atenoloL [Atenolol] 50 mg PO DAILY 08/30/18 07/01/22 Insulin Aspart [NovoLOG] 20 unit SUBQ TIDWM 01/29/19 07/01/22 Insulin Degludec [Tresiba 45 unit SUBQ QPM 01/29/19 07/01/22 Flextouch U-100] DULoxetine [Cymbalta] See Rx Instructions .ROUTE .COMPLEX 03/03/22 07/01/22 Losartan Potassium See Rx Instructions .ROUTE .COMPLEX 03/03/22 07/01/22 Risankizumab-Rzaa [Skyrizi Pen] See Rx Instructions .ROUTE .COMPLEX 03/03/22 07/01/22 Ropinirole HCl See Rx Instructions .ROUTE .COMPLEX 03/03/22 07/01/22 amLODIPine [Norvasc] See Rx Instructions .ROUTE .COMPLEX 03/03/22 07/01/22 HYDROcod/ACETAM 5/325 [[place] 5/325] 1 - 2 tablet PO Q6H PRN #14 tablet 08/07/22 Ibuprofen [Motrin] 800 mg PO Q8H PRN #30 tablet 08/07/22 predniSONE [Deltasone] 10 mg PO [id number] #42 tab 08/07/22 - Allergies Allergies/Adverse Reactions: Allergies Allergy/AdvReac Type Severity Reaction Status Date / Time amoxicillin Allergy Rash Verified 08/15/22 13:56 chlorzoxazone Allergy Rash Verified 08/15/22 13:56 [From Luke Luna] Sulfa (Sulfonamide Allergy Rash Verified 08/15/22 13:56 Antibiotics) codeine AdvReac depressed Verified 08/15/22 13:56 lisinopril AdvReac cough Verified 08/15/22 13:56 metformin AdvReac severe Verified 08/15/22 13:56 diarrhea - Social History Smoking Status: Never smoker PD ED PE NORMAL - Vitals Vital signs reviewed: Yes - General General: Alert and oriented X 3, No acute distress - HEENT HEENT: PERRL, EOMI - Neck Neck: Supple, no meningeal sign, No bony TTP - Cardiac Cardiac: RRR, No murmur - Respiratory Respiratory: No respiratory distress, Clear bilaterally - Abdomen Abdomen: Non tender - Back Back: No CVA TTP, No spinal TTP - Derm Derm: Normal color, Warm and dry - Extremities Extremities: No edema, No calf tenderness / cord - Neuro Neuro: Alert and oriented X 3, Normal speech Eye Opening: Spontaneous Motor: Obeys Commands Verbal: Oriented GCS Score: 15 - Psych Psych: Normal mood, Normal affect Results - Vitals Vitals: Vital Signs - 24 hr 08/15/22 13:56 Temperature 36.5 C Heart Rate 69 Respiratory 16 Rate Blood Pressure 154/69 H O2 Saturation 96 Oxygen O2 Source Room air - Labs Labs: Laboratory Tests 08/15/22 08/15/22 08/15/22 13:37 13:37 13:37 WBC 23.9 H RBC 4.37 Hgb 12.9 Hct 41.0 MCV 93.8 MCH 29.5 MCHC 31.5 L RDW 13.8 Plt Count 261 MPV 8.6 Manual Slide Review Indicated Sodium 137 Potassium 3.8 Chloride 101 Carbon Dioxide 30 Anion Gap 6.0 BUN 27 H Creatinine 1.6 H Estimated GFR (MDRD) 32 L Glucose 105 H Calcium 8.6 Procalcitonin 0.09 PD Medical Decision Making - ED course ED course: Given the relative lack of current infectious symptoms and improvement of her back pain I suspect that the elevated white count is a combination of chronic mild elevation of her white count with added glucocorticoids. Will check a pro calcitonin level. Departure - Departure Disposition: 01 Home, Self Care Clinical Impression: Leukocytosis Condition: Good Record reviewed to determine appropriate education?: Yes Comments: As discussed, your white count is still about 23,000 but your procalcitonin is normal suggesting against an infectious cause of the elevated white count. Recommend getting it checked again about a week after you finish out the steroids as we presume it is the steroids causing this. Return for new or worsening symptoms.
[2022-08-15 15:43] LABS: BASOPHILS # (AUTO) 0.1 10^3/uL (0.0-0.1); BASOPHILS % (AUTO) 0.3 %; EOSINOPHILS # (AUTO) 0.2 10^3/uL (0.0-0.7); EOSINOPHILS % (AUTO) 0.7 %; HGB - HEMOGLOBIN 12.9 g/dL (12.0-16.0); LYMPHOCYTES # (AUTO) 3.5 10^3/uL (1.5-3.5); LYMPHOCYTES % (AUTO) 14.6 %; MEAN CORPUSCULAR HEMOGLOBIN 29.5 pg (27.0-31.0); MEAN CORPUSCULAR HGB CONC 31.5 g/dL (32.0-36.0); MEAN CORPUSCULAR VOLUME 93.8 fL (81.0-99.0); MEAN PLATELET VOLUME 8.6 fL (7.9-10.8); MONOCYTES # (AUTO) 1.5 10^3/uL (0.0-1.0); MONOCYTES % (AUTO) 6.2 %; NEUTROPHILS # (AUTO) 18.5 10^3/uL (1.5-6.6); NEUTROPHILS % (AUTO) 77.2 %; PLT - PLATELET COUNT 261 10^3/uL (130-450); RED BLOOD COUNT 4.37 10^6/uL (4.20-5.40); RED CELL DISTRIBUTION WIDTH 13.8 % (12.0-15.0); WHITE BLOOD COUNT 23.9 x10^3/uL (4.8-10.8)
[2022-08-15 15:51] LABS: CALCIUM 8.6 mg/dL (8.5-10.3); CREATININE 1.6 mg/dL (0.4-1.0); POTASSIUM 3.8 mmol/L (3.5-5.0)
[2022-08-15 16:00] LABS: SLIDE REVIEW? Indicated
[2022-08-15 16:21] LABS: DIFFERENTIAL COMMENT MANUAL=AUTO DIFF; PLATELET ESTIMATE, MANUAL NORMAL (130-450,000) (NORMAL); PLATELET MORPHOLOGY NORMAL APPEARANCE (NORMAL); RBC MORPHOLOGY (MULTIPLE) NORMAL APPEARANCE (NORMAL)
== END 2022-08-15 16:28 | disposition home or self-care (01) ==
LOC: ED 13:52
DX: D72.829 Elevated white blood cell count, unspecified (principal); I10 Essential (primary) hypertension; E11.9 Type 2 diabetes mellitus without complications; E05.90 Thyrotoxicosis, unspecified without thyrotoxic crisis or storm; Z79.899 Other long term (current) drug therapy; Z79.4 Long term (current) use of insulin
CPT/HCPCS: 36415; 80048; 84145; 85025; 99283

== ENCOUNTER 2022-08-20 10:27 | Outpatient (CLI) | payer MEDICARE, BC, OTHER ==
[2022-08-20 18:46] LABS: BASOPHILS % (AUTO) 0.2 %; EOSINOPHILS # (AUTO) 0.2 10^3/uL (0.0-0.7); EOSINOPHILS % (AUTO) 1.4 %; HCT - HEMATOCRIT 41.6 % (37.0-47.0); HGB - HEMOGLOBIN 12.7 g/dL (12.0-16.0); LYMPHOCYTES % (AUTO) 11.7 %; MEAN CORPUSCULAR HEMOGLOBIN 29.4 pg (27.0-31.0); MEAN CORPUSCULAR HGB CONC 30.5 g/dL (32.0-36.0); MEAN CORPUSCULAR VOLUME 96.3 fL (81.0-99.0); MEAN PLATELET VOLUME 9.1 fL (7.9-10.8); MONOCYTES # (AUTO) 1.1 10^3/uL (0.0-1.0); MONOCYTES % (AUTO) 6.4 %; NEUTROPHILS # (AUTO) 13.4 10^3/uL (1.5-6.6); NEUTROPHILS % (AUTO) 79.4 %; PLT - PLATELET COUNT 269 10^3/uL (130-450); RED BLOOD COUNT 4.32 10^6/uL (4.20-5.40); RED CELL DISTRIBUTION WIDTH 14.4 % (12.0-15.0); WHITE BLOOD COUNT 16.8 x10^3/uL (4.8-10.8)
== END 2022-08-20 10:28 | disposition home or self-care (01) ==
LOC: LAB.N 10:27
PROVIDERS: ATTEND Physician Assistant
DX: D72.829 Elevated white blood cell count, unspecified (principal)
CPT/HCPCS: 36415; 85025

== ENCOUNTER 2022-08-25 16:12 | Outpatient (CLI) | payer MEDICARE, BC, OTHER ==
[2022-08-25 17:54] LABS: BASOPHILS # (AUTO) 0.1 10^3/uL (0.0-0.1); BASOPHILS % (AUTO) 0.4 %; EOSINOPHILS # (AUTO) 0.2 10^3/uL (0.0-0.7); EOSINOPHILS % (AUTO) 1.4 %; HCT - HEMATOCRIT 39.2 % (37.0-47.0); HGB - HEMOGLOBIN 12.3 g/dL (12.0-16.0); LYMPHOCYTES # (AUTO) 1.8 10^3/uL (1.5-3.5); LYMPHOCYTES % (AUTO) 12.8 %; MEAN CORPUSCULAR HEMOGLOBIN 29.5 pg (27.0-31.0); MEAN CORPUSCULAR HGB CONC 31.4 g/dL (32.0-36.0); MONOCYTES # (AUTO) 0.8 10^3/uL (0.0-1.0); MONOCYTES % (AUTO) 5.6 %; NEUTROPHILS % (AUTO) 79.3 %; PLT - PLATELET COUNT 268 10^3/uL (130-450); RED BLOOD COUNT 4.17 10^6/uL (4.20-5.40); RED CELL DISTRIBUTION WIDTH 13.7 % (12.0-15.0); WHITE BLOOD COUNT 13.9 x10^3/uL (4.8-10.8)
[2022-08-31 11:21] LABS: PATHOLOGIST SLIDE COMMENTS SEE SEPARATE REPORT
== END 2022-08-25 16:13 | disposition home or self-care (01) ==
LOC: LAB.N 16:12
PROVIDERS: ATTEND Physician Assistant
DX: D72.829 Elevated white blood cell count, unspecified (principal)
CPT/HCPCS: 36415; 85025

== ENCOUNTER 2022-09-14 08:00 | Outpatient (CLI) | payer MEDICARE, BC, OTHER ==
[2022-09-14 12:17] LABS: BASOPHILS # (AUTO) 0.1 10^3/uL (0.0-0.1); BASOPHILS % (AUTO) 0.4 %; EOSINOPHILS # (AUTO) 0.2 10^3/uL (0.0-0.7); HGB - HEMOGLOBIN 12.9 g/dL (12.0-16.0); LYMPHOCYTES % (AUTO) 11.2 %; MEAN CORPUSCULAR HEMOGLOBIN 29.7 pg (27.0-31.0); MEAN CORPUSCULAR HGB CONC 31.5 g/dL (32.0-36.0); MEAN CORPUSCULAR VOLUME 94.5 fL (81.0-99.0); MEAN PLATELET VOLUME 9.1 fL (7.9-10.8); MONOCYTES # (AUTO) 1.2 10^3/uL (0.0-1.0); MONOCYTES % (AUTO) 6.8 %; NEUTROPHILS # (AUTO) 14.5 10^3/uL (1.5-6.6); NEUTROPHILS % (AUTO) 80.2 %; PLT - PLATELET COUNT 317 10^3/uL (130-450); RED BLOOD COUNT 4.34 10^6/uL (4.20-5.40); RED CELL DISTRIBUTION WIDTH 13.5 % (12.0-15.0)
== END 2022-09-14 08:01 | disposition home or self-care (01) ==
LOC: LAB.N 08:00
PROVIDERS: ATTEND Family Medicine
DX: D72.829 Elevated white blood cell count, unspecified (principal)
CPT/HCPCS: 36415; 85025

== ENCOUNTER 2022-09-14 09:30 | Outpatient (CLI) | payer MEDICARE, BC, OTHER | END 2022-09-14 09:45 | disposition home or self-care (01) | LOC: LAB.N 09:30 | PROVIDERS: ATTEND Family Medicine | DX: N39.0 Urinary tract infection, site not specified (principal); D72.829 Elevated white blood cell count, unspecified | CPT/HCPCS: 36415; 85025; 87086; 87181 ==

== ENCOUNTER 2022-09-22 10:30 | Outpatient (CLI) | payer MEDICARE, BC, OTHER | END 2022-09-22 10:45 | disposition home or self-care (01) | LOC: LAB.N 10:30 | PROVIDERS: ATTEND Nurse Practitioner | DX: N39.0 Urinary tract infection, site not specified (principal) | CPT/HCPCS: 87086 ==

== ENCOUNTER 2022-10-19 13:41 | Emergency (ER) | payer MEDICARE, BC, OTHER ==
[2022-10-19 14:14] VITALS: BP 134/66; O2SAT 95
--- NOTE | 2022-10-19 14:31 | ED Physician Documentation ---
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 HEENT: Other - Present Medications Home Medications: Ambulatory Orders Medication Instructions Recorded Confirmed Tramadol HCl [Ultram] 50 mg PO QID 08/30/18 07/01/22 atenoloL [Atenolol] 50 mg PO DAILY 08/30/18 07/01/22 Insulin Aspart [NovoLOG] 20 unit SUBQ TIDWM 01/29/19 07/01/22 Insulin Degludec [Tresiba 45 unit SUBQ QPM 01/29/19 07/01/22 Flextouch U-100] DULoxetine [Cymbalta] See Rx Instructions .ROUTE .COMPLEX 03/03/22 07/01/22 Losartan Potassium See Rx Instructions .ROUTE .COMPLEX 03/03/22 07/01/22 Risankizumab-Rzaa [Skyrizi Pen] See Rx Instructions .ROUTE .COMPLEX 03/03/22 07/01/22 Ropinirole HCl See Rx Instructions .ROUTE .COMPLEX 03/03/22 07/01/22 amLODIPine [Norvasc] See Rx Instructions .ROUTE .COMPLEX 03/03/22 07/01/22 HYDROcod/ACETAM 5/325 [[place] 5/325] 1 - 2 tablet PO Q6H PRN #14 tablet 08/07/22 Ibuprofen [Motrin] 800 mg PO Q8H PRN #30 tablet 08/07/22 predniSONE [Deltasone] 10 mg PO [id number] #42 tab 08/07/22 - Allergies Allergies/Adverse Reactions: Allergies Allergy/AdvReac Type Severity Reaction Status Date / Time amoxicillin Allergy Rash Verified 10/19/22 13:59 chlorzoxazone Allergy Rash Verified 10/19/22 13:59 [From Parafon Forte] Sulfa (Sulfonamide Allergy Rash Verified 10/19/22 13:59 Antibiotics) codeine AdvReac depressed Verified 10/19/22 13:59 lisinopril AdvReac cough Verified 10/19/22 13:59 metformin AdvReac severe Verified 10/19/22 13:59 diarrhea - Social History Smoking Status: Never smoker Results - Vitals Vitals: Vital Signs - 24 hr 10/19/22 13:53 Temperature 36.8 C Heart Rate 66 Respiratory 19 Rate Blood Pressure 134/66 H O2 Saturation 95 Oxygen O2 Source Room air Departure - Departure
--- NOTE | 2022-10-19 14:40 | ED Physician Documentation ---
History of Present Illness - Stated complaint Stated Complaint: SOA/CONGESTION - Chief complaint Chief Complaint: Resp - History obtained from History obtained from: Patient - Additonal information Additional information: 79-year-old woman with type 2 diabetes, fibromyalgia presents with an illness. She got sick a few days ago with runny nose and then it trended down into her chest with cough productive of yellow sputum and shortness of breath. No fevers. Took a home COVID test 2 days ago which was negative. 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 HEENT: Other - Present Medications Home Medications: Ambulatory Orders Medication Instructions Recorded Confirmed Tramadol HCl [Ultram] 50 mg PO QID 08/30/18 07/01/22 atenoloL [Atenolol] 50 mg PO DAILY 08/30/18 07/01/22 Insulin Aspart [NovoLOG] 20 unit SUBQ TIDWM 01/29/19 07/01/22 Insulin Degludec [Tresiba 45 unit SUBQ QPM 01/29/19 07/01/22 Flextouch U-100] DULoxetine [Cymbalta] See Rx Instructions .ROUTE .COMPLEX 03/03/22 07/01/22 Losartan Potassium See Rx Instructions .ROUTE .COMPLEX 03/03/22 07/01/22 Risankizumab-Rzaa [Skyrizi Pen] See Rx Instructions .ROUTE .COMPLEX 03/03/22 07/01/22 Ropinirole HCl See Rx Instructions .ROUTE .COMPLEX 03/03/22 07/01/22 amLODIPine [Norvasc] See Rx Instructions .ROUTE .COMPLEX 03/03/22 07/01/22 HYDROcod/ACETAM 5/325 [[place] 5/325] 1 - 2 tablet PO Q6H PRN #14 tablet 08/07/22 Ibuprofen [Motrin] 800 mg PO Q8H PRN #30 tablet 08/07/22 predniSONE [Deltasone] 10 mg PO [id number] #42 tab 08/07/22 Albuterol Sulf [Ventolin Hfa 1 - 2 puffs INH Q4HR PRN #1 each 10/19/22 Inhaler] Benzonatate [Tessalon] 200 mg PO TID PRN #20 cap 10/19/22 Doxycycline [Vibramycin] 100 mg PO BID #14 tablet 10/19/22 guaiFENesin/CODEINE [Robitussin AC] 5 - 10 ml PO Q6H PRN #120 ml 10/19/22 - Allergies Allergies/Adverse Reactions: Allergies Allergy/AdvReac Type Severity Reaction Status Date / Time amoxicillin Allergy Rash Verified 10/19/22 13:59 chlorzoxazone Allergy Rash Verified 10/19/22 13:59 [From Parafon Forte] Sulfa (Sulfonamide Allergy Rash Verified 10/19/22 13:59 Antibiotics) codeine AdvReac depressed Verified 10/19/22 13:59 lisinopril AdvReac cough Verified 10/19/22 13:59 metformin AdvReac severe Verified 10/19/22 13:59 diarrhea - Social History Smoking Status: Never smoker PD ED PE NORMAL - Vitals Vital signs reviewed: Yes - General General: Alert and oriented X 3, No acute distress - HEENT HEENT: Pharynx benign - Respiratory Respiratory: No respiratory distress, Other (Diffuse wheezing and rhonchi, no focal findings) - Neuro Neuro: Alert and oriented X 3, Normal speech Results - Vitals Vitals: Vital Signs - 24 hr 10/19/22 13:53 Temperature 36.8 C Heart Rate 66 Respiratory 19 Rate Blood Pressure 134/66 H O2 Saturation 95 Oxygen O2 Source Room air - Rads (name of study) 2 view chest x-ray is unremarkable Relevant Findings:: Final report received, EMP independent interpretation of test PD Medical Decision Making - ED course ED course: She presents for what sounds like wheezy bronchitis. Given her comorbidities she was given a [id number] prescription for doxycycline. She has a listed allergy to codeine, but does think she will be okay with the small dose and the cough syrup for just a few days. Departure - Departure Disposition: 01 Home, Self Care Clinical Impression: Wheezy bronchitis Condition: Good Record reviewed to determine appropriate education?: Yes Instructions: ED Upper Resp Infec Abx Tx Prescriptions: Albuterol Sulf [Ventolin Hfa Inhaler] 1 - 2 puffs INH Q4HR PRN #1 each PRN Reason: Shortness Of Air/Wheezing guaiFENesin/CODEINE [Robitussin AC] 5 - 10 ml PO Q6H PRN #120 ml PRN Reason: Cough Benzonatate [Tessalon] 200 mg PO TID PRN #20 cap PRN Reason: Cough Doxycycline [Vibramycin] 100 mg PO BID #14 tablet Comments: You are seen today for wheezy bronchitis. I do not necessarily think antibiotics are necessary but I am writing you a "wait and see" prescription that you can start, doxycycline on or about Monday, sooner if worse. In the meantime I think the albuterol, Tessalon, and codeine will be quite helpful for you. I sent your prescriptions electronically to in [place]. Do not drink or drive while taking codeine. Forms: PCP List Discharge Date/Time: 10/19/22 14:48
--- NOTE | 2022-10-19 15:02 | XRAY Report ---
PROCEDURE: Chest 2 View X-Ray INDICATIONS: cough TECHNIQUE: 2 views of the chest were acquired. COMPARISON: CT chest 12/10/2021 FINDINGS: Surgical changes and devices: None. Lungs and pleura: No pleural effusions or pneumothorax. Lungs are clear. Mediastinum: Mediastinal contours appear normal. Heart size is normal. Bones and chest wall: No suspicious bony lesions. Overlying soft tissues appear unremarkable. IMPRESSION: No acute cardiopulmonary process. Reviewed by: Radha Briseno MD on 10/19/2022 3:01 PM PDT Approved by: Radha Briseno MD on 10/19/2022 3:01 PM PDT Station ID: [id number]
== END 2022-10-19 14:48 | disposition home or self-care (01) ==
LOC: ED 13:41
DX: J40 Bronchitis, not specified as acute or chronic (principal); I10 Essential (primary) hypertension; E11.9 Type 2 diabetes mellitus without complications; Z79.4 Long term (current) use of insulin
CPT/HCPCS: 99284

== ENCOUNTER 2022-11-14 09:13 | Outpatient (CLI) | payer MEDICARE, BC, OTHER ==
[2022-11-14 12:12] LABS: BASOPHILS # (AUTO) 0.1 10^3/uL (0.0-0.1); BASOPHILS % (AUTO) 0.4 %; EOSINOPHILS # (AUTO) 0.3 10^3/uL (0.0-0.7); EOSINOPHILS % (AUTO) 2.4 %; HCT - HEMATOCRIT 39.9 % (37.0-47.0); HGB - HEMOGLOBIN 12.3 g/dL (12.0-16.0); LYMPHOCYTES % (AUTO) 14.3 %; MEAN CORPUSCULAR HEMOGLOBIN 29.4 pg (27.0-31.0); MEAN CORPUSCULAR HGB CONC 30.8 g/dL (32.0-36.0); MEAN CORPUSCULAR VOLUME 95.5 fL (81.0-99.0); MEAN PLATELET VOLUME 9.3 fL (7.9-10.8); MONOCYTES # (AUTO) 1.1 10^3/uL (0.0-1.0); MONOCYTES % (AUTO) 7.4 %; NEUTROPHILS # (AUTO) 10.7 10^3/uL (1.5-6.6); PLT - PLATELET COUNT 274 10^3/uL (130-450); RED BLOOD COUNT 4.18 10^6/uL (4.20-5.40); RED CELL DISTRIBUTION WIDTH 13.7 % (12.0-15.0); WHITE BLOOD COUNT 14.2 x10^3/uL (4.8-10.8)
[2022-11-14 12:38] LABS: CREATININE,URINE 121.3 mg/dL; MICROALBUM/CREATININE RATIO,UR 10.7 ug/mg (<30.0); MICROALBUMIN,URINE 1.3 mg/dL
[2022-11-14 12:45] LABS: ALBUMIN 3.6 g/dL (3.2-5.5); ALBUMIN/GLOBULIN RATIO 1.1 (1.0-2.2); ALKALINE PHOSPHATASE 119 IU/L (42-121); ALT ALANINE AMINOTRANSFERASE 15 IU/L (10-60); AST ASPARTATE AMINOTRANSFERASE 15 IU/L (10-42); BILIRUBIN,TOTAL 0.5 mg/dL (0.2-1.0); BUN - BLOOD UREA NITROGEN 18 mg/dL (6-20); CALCIUM 8.8 mg/dL (8.5-10.3); CARBON DIOXIDE - CO2 30 mmol/L (21-32); CHLORIDE 102 mmol/L (101-111); CHOL/HDL RATIO 2.4 (<4.4); CHOLESTEROL 157 mg/dL; CREATININE 1.5 mg/dL (0.6-1.3); GFR - MDRD 34 (>89); GLUCOSE 176 mg/dL (74-104); HDL CHOLESTEROL 65 mg/dL; LDL CHOLESTEROL,CALCULATED 65 mg/dL; POTASSIUM 4.1 mmol/L (3.5-4.5); SODIUM 138 mmol/L (135-145); TOTAL PROTEIN 6.8 g/dL (6.4-8.9); TRIGLYCERIDES 137 mg/dL (48-352); VLDL CHOLESTEROL 27 mg/dL
[2022-11-14 12:48] LABS: ESTIMATED AVERAGE GLUCOSE 131 mg/dL (70-100); HEMOGLOBIN A1c% 6.2 % (4.27-6.07)
== END 2022-11-14 09:14 | disposition home or self-care (01) ==
LOC: LAB.N 09:13
PROVIDERS: ATTEND Physician Assistant
DX: I10 Essential (primary) hypertension (principal); E78.5 Hyperlipidemia, unspecified; E11.9 Type 2 diabetes mellitus without complications
CPT/HCPCS: 36415; 80053; 80061; 82043; 82570; 83036; 83721; 85025

== ENCOUNTER 2022-11-23 14:31 | Outpatient (CLI) | payer MEDICARE, BC, OTHER ==
--- NOTE | 2022-11-24 10:01 | Mammography Report ---
BILATERAL DIGITAL SCREENING MAMMOGRAM 3D/2D: 11/23/2022 CLINICAL: Routine screening. Sister with breast cancer. Comparison is made to exams dated: 10/20/2021 mammogram, 06/29/2020 mammogram, 04/05/2019 mammogram, 02/16 mammogram, 01/09/2017 mammogram, and 12/19/2016 mammogram - [facility]. Both breasts are heterogeneously dense, which may obscure small masses (category c / 51-75% glandular tissue). There are benign calcifications in both breasts. No significant masses, calcifications, or other findings are seen in either breast. There has been no significant interval change. IMPRESSION: BENIGN There is no mammographic evidence of malignancy. A 1 year screening mammogram is recommended. Based on the Tyrer Cuzick model (a risk assessment model) the patients lifetime risk is 15.0% and he r 10 year risk is 11.3%. According to the ACR, ACS, and NCCN guidelines, an annual breast MRI exam al cresencio with mammogram is recommended if the patients lifetime risk is 20% or greater. This exam was interpreted at Station ID: [id number]. NOTE: For mammograms, a report in lay terms will be sent to the patient. Approximately 15% of breast malignancies will not be visualized mammographically. In the management of a palpable breast mass, a negative mammogram must not discourage biopsy of a clinically suspicious lesion. Electronically Signed By: Wiliam Reich M.D. aty/:11/24/2022 07:25:10 letter sent: No_Letter ACR BI-RADS Category 2: Benign Finding(s) 3342F PARENCHYMAL PATTERN: (D) - The breast(s) demonstrate(s) heterogeneously dense fibroglandular [place] ott. BI-RADS CATEGORY: (2) - 2 Mammogram [id number] 1 year screening LATERALITY: (B)
== END 2022-11-23 14:32 | disposition home or self-care (01) ==
LOC: DI 14:31
DX: Z12.31 Encounter for screening mammogram for malignant neoplasm of breast (principal); Z80.3 Family history of malignant neoplasm of breast; R92.333 Mammographic heterogeneous density, bilateral breasts

== ENCOUNTER 2022-12-26 12:46 | Outpatient (CLI) | payer MEDICARE, BC, OTHER ==
--- NOTE | 2022-12-26 21:38 | SLEEP CARE CONSULTATION ---
Information from patient questionnaire entered by Faviola Hawkins. I have reviewed and concur with the information entered by Faviola Hawkins. This document represents the service I personally performed and the decisions made by me, Ashwin Willson MD, [facility]. History of Present Illness Service Date and Time: 12/26/2022 1246 Previous diagnosis: Moderate, Obstructive Sleep Apnea-Hypopnea Syndrome AHI: 16.7 (in 03/2022) Reason for follow up: other (2 MONTH F/U INSOMNIA) Equipment type: CPAP (RESMED Airsense 11) Equipment obtained from: Other ([facility]) Mask style: Nasal pillows Prior sleep studies: Yes Year and Where: [facility]? MISTY THAKUR 15-20 YRS AGO HPI additional information: Ms. Humphrey returned today for follow up of nasal CPAP therapy. She was diagnosed to have moderate obstructive sleep apnea-hypopnea syndrome. She tried CPAP for 1 2 months then quit (she also tried using one 10 years ago). She said she could not tolerate it because of PTSD. She continues to complain of insomnia where she wakes up several times during the night and cannot fall back asleep. She would eat or do laundry in the middle of night. She is bothered by restless leg syndrome that is partially relieved with ropinirole 0.5 mg at bedtime. She took gabapentin in the past. She reports that pain from fibromyalgia bothers her at night. Sleep Study - Results Prior sleep studies: Yes Year and Where: [facility]? MISTY THAKUR 15-20 YRS AGO Subjective Initial [place] Sleepiness Scale score: 11 (03/03/22) Current [place] Sleepiness Scale score: 6 (12/26/22) Allergies and Home Medications Drug allergies reviewed: Yes Home medication list reviewed: Yes Allergy and home medication list: Allergies amoxicillin Allergy (Verified 12/26/22 08:06) Rash chlorzoxazone [From Parafon Forte] Allergy (Verified 12/26/22 08:06) Rash Sulfa (Sulfonamide Antibiotics) Allergy (Verified 12/26/22 08:06) Rash codeine Adverse Reaction (Verified 12/26/22 08:06) depressed lisinopril Adverse Reaction (Verified 12/26/22 08:06) cough metformin Adverse Reaction (Verified 12/26/22 08:06) severe diarrhea Review of Systems Review of systems same as previous: Yes Physical Exam Vital signs obtained and entered by: FAVIOLA Earl MA Blood Pressure: 120/64 (LEFT ARM) Cuff size: regular Heart Rate: 70 O2 Saturation: 97 Height: 5 ft 6 in Weight: 231 lb 3.2 oz Body Mass Index: 37.3 BMI Classification: Obese Impression and Plan IMPRESSION: 1. Obstructive Sleep Apnea-Hypopnea Syndrome, moderate (AHI was 16.7 earlier this year) with the patient not tolerating CPAP therapy. She has an oral appliance made by her dentist, but is not using it consistently. 2. Insomnia, involving sleep maintenance. Contributing factors are: pain, restless leg syndrome, moderate obstructive sleep apnea-hypopnea, and excessive time spent in bed of about 9 10 hours each night. Because she says that if she could get 6 hours of sleep a night, she would be satisfied, I instructed her to allow herself 6 hours for sleeping. I had her choose her wakeup time. She chose 9 am. Therefore, she was instructed to not go to bed any earlier than 3 am. She is to also not nap during the day. 3. Restless leg syndrome, partially controlled with ropinirole 0.5 mg. I recommend adding gabapentin back. PLAN: 1. Try to use the oral appliance regularly. A home sleep apnea test (HSAT) can be performed to assess its effectiveness. 2. Try to lose weight 3. Maintain a regular wake up time and spend no more than 6 hours in bed at night. Avoid naps. The patient chose 3 am 9 am. 4. Consider adding gabapentin to ropinirole to control restless leg syndrome. 5. Return in one year for follow up or earlier if there is any problem with the treatment. Follow up with Sleep Care in: 1 year Follow up with: PCP Visit Type: In Office Time Spent with Patient (minutes): 15 Provider Statement: I spent 100% of the Face to Face Visit with the patient with greater than 50% spent counseling the patient and coordination of care.
[2022-12-26 21:45] VITALS: BP 120/64; O2SAT 97
== END 2022-12-26 12:47 | disposition home or self-care (01) ==
LOC: SC 12:46
PROVIDERS: ATTEND Internal Medicine Pulmonary Disease
DX: G47.33 Obstructive sleep apnea (adult) (pediatric) (principal); G47.00 Insomnia, unspecified; G25.81 Restless legs syndrome; Z79.899 Other long term (current) drug therapy; E66.9 Obesity, unspecified; Z68.37 Body mass index [BMI] 37.0-37.9, adult
CPT/HCPCS: 99212; G0463

== ENCOUNTER 2023-01-12 09:47 | Outpatient (CLI) | payer MEDICARE, BC, OTHER ==
[2023-01-12 12:12] LABS: BASOPHILS # (AUTO) 0.1 10^3/uL (0.0-0.1); BASOPHILS % (AUTO) 0.4 %; EOSINOPHILS # (AUTO) 0.3 10^3/uL (0.0-0.7); EOSINOPHILS % (AUTO) 1.9 %; HCT - HEMATOCRIT 40.7 % (37.0-47.0); HGB - HEMOGLOBIN 12.7 g/dL (12.0-16.0); LYMPHOCYTES # (AUTO) 2.2 10^3/uL (1.5-3.5); LYMPHOCYTES % (AUTO) 16.6 %; MEAN CORPUSCULAR HEMOGLOBIN 29.4 pg (27.0-31.0); MEAN CORPUSCULAR HGB CONC 31.2 g/dL (32.0-36.0); MEAN CORPUSCULAR VOLUME 94.2 fL (81.0-99.0); MONOCYTES # (AUTO) 0.7 10^3/uL (0.0-1.0); MONOCYTES % (AUTO) 5.6 %; NEUTROPHILS # (AUTO) 9.7 10^3/uL (1.5-6.6); NEUTROPHILS % (AUTO) 74.9 %; PLT - PLATELET COUNT 273 10^3/uL (130-450); RED BLOOD COUNT 4.32 10^6/uL (4.20-5.40); RED CELL DISTRIBUTION WIDTH 13.9 % (12.0-15.0); WHITE BLOOD COUNT 12.9 x10^3/uL (4.8-10.8)
[2023-01-12 12:29] LABS: ESTIMATED AVERAGE GLUCOSE 134 mg/dL (70-100); HEMOGLOBIN A1c% 6.3 % (4.27-6.07)
[2023-01-12 12:34] LABS: ALBUMIN 3.8 g/dL (3.2-5.5); ALBUMIN/GLOBULIN RATIO 1.2 (1.0-2.2); ALKALINE PHOSPHATASE 130 IU/L (42-121); ALT ALANINE AMINOTRANSFERASE 14 IU/L (10-60); AST ASPARTATE AMINOTRANSFERASE 15 IU/L (10-42); BILIRUBIN,TOTAL 0.9 mg/dL (0.2-1.0); BUN - BLOOD UREA NITROGEN 17 mg/dL (6-20); CALCIUM 9.2 mg/dL (8.5-10.3); CARBON DIOXIDE - CO2 30 mmol/L (21-32); CHLORIDE 103 mmol/L (101-111); CHOL/HDL RATIO 2.2 (<4.4); CHOLESTEROL 155 mg/dL; CREATININE 1.5 mg/dL (0.6-1.3); GFR - MDRD 34 (>89); GLUCOSE 122 mg/dL (74-104); HDL CHOLESTEROL 69 mg/dL; LDL CHOLESTEROL,CALCULATED 68 mg/dL; POTASSIUM 4.2 mmol/L (3.5-4.5); SODIUM 138 mmol/L (135-145); TRIGLYCERIDES 92 mg/dL (48-352); VLDL CHOLESTEROL 18 mg/dL
== END 2023-01-12 09:48 | disposition home or self-care (01) ==
LOC: LAB.N 09:47
PROVIDERS: ATTEND Physician Assistant
DX: E11.9 Type 2 diabetes mellitus without complications (principal)
CPT/HCPCS: 36415; 80053; 80061; 83036; 83721; 85025

== ENCOUNTER 2023-01-20 10:54 | Outpatient (CLI) | payer MEDICARE, BC, OTHER ==
--- NOTE | 2023-01-20 17:33 | XRAY Report ---
PROCEDURE: Finger(s) RT INDICATIONS: RIGHT THUMB PAIN TECHNIQUE: AP hand, 2 views of the first finger(s) acquired. COMPARISON: None. FINDINGS: Bones: No fractures or dislocations. No suspicious bony lesions. Scattered IP and first CMC degen erative narrowing. No erosions. Soft tissues: No suspicious soft tissue calcifications or masses. IMPRESSION: Scattered arthritic changes. No visualized acute fracture or dislocation. However, occult injury bert ot be excluded. Recommend short interval imaging follow-up in 7-10 days as clinically indicated for a dditional evaluation. Reviewed by: Radha Briseno MD on 01/20/2023 5:32 PM PST Approved by: Radha Briseno MD on 01/20/2023 5:32 PM PST Station ID: [id number]
== END 2023-01-20 10:55 | disposition home or self-care (01) ==
LOC: DI 10:54
PROVIDERS: ATTEND Physician Assistant
DX: M18.11 Unilateral primary osteoarthritis of first carpometacarpal joint, right hand (principal)

== ENCOUNTER 2023-01-27 09:08 | Outpatient (CLI) | payer MEDICARE, BC, OTHER ==
--- NOTE | 2023-01-27 12:24 | CT Report ---
PROCEDURE: CHEST WO INDICATIONS: MULTIPLE LUNG NODULES TECHNIQUE: Noncontrast 1mm axial images were acquired from the pulmonary apices to the posterior costophrenic an gles. Axial 5 mm soft tissue kernel reconstructions were performed as well as 8 mm axial MIP and cor onal and sagittal 5 mm reformations. For radiation dose reduction, the following was used: automate d exposure control, adjustment of mA and/or kV according to patient size. COMPARISON: 12/02/2021 FINDINGS: Image quality: Excellent. Lungs and pleura: No consolidation. No pleural effusions. No pneumothorax. There are several pulmona ry nodules in the right lower lobe which have not significantly increased in size or morphology, one largest measuring 6 mm posterior medial right lower lobe, 3/193. There is a stable indistinct nodule in the left lower lobe, series 3 image 177 measuring 3 mm. Central and peripheral airways are normal caliber without bronchial wall thickening or bronchiectasis. Mediastinum: Heart size is normal. No pericardial effusion. No large vessel abnormality. Borderline p rominent bilateral hilar and mediastinal lymph nodes, one of the largest in the right subcarinal issa on measures 1.1 cm in short axis, previously 1.0 cm. Chest wall and lower neck: Thyroid is unremarkable. No axillary or supraclavicular adenopathy by size . Bones: No aggressive osseous abnormality. Upper Abdomen: Unremarkable. IMPRESSION: 1. Stable nonspecific bilateral pulmonary nodules. One-year follow-up CT scan to establish two-year s tability is recommended. 2. Stable borderline mediastinal and hilar adenopathy. Reviewed by: Angelica Diaz MD on 01/27/2023 12:23 PM PST Approved by: Angelica Diaz MD on 01/27/2023 12:23 PM PST Station ID: [id number]
== END 2023-01-27 09:09 | disposition home or self-care (01) ==
LOC: DI 09:08
PROVIDERS: ATTEND Physician Assistant
DX: R91.8 Other nonspecific abnormal finding of lung field (principal); R59.0 Localized enlarged lymph nodes

== ENCOUNTER 2023-02-27 11:00 | Outpatient (CLI) | payer MEDICARE, BC, OTHER | END 2023-02-27 11:01 | disposition home or self-care (01) | LOC: LAB.N 11:00 | PROVIDERS: ATTEND Nurse Practitioner | DX: Z79.899 Other long term (current) drug therapy (principal) | CPT/HCPCS: 81599; 86480 ==

== ENCOUNTER 2023-10-09 10:14 | Outpatient (CLI) | payer MEDICARE, BC, OTHER ==
[2023-10-09 13:24] LABS: CALCIUM 9.1 mg/dL (8.5-10.3); CREATININE 1.4 mg/dL (0.6-1.3); POTASSIUM 4.1 mmol/L (3.5-4.5)
[2023-10-09 14:17] LABS: ESTIMATED AVERAGE GLUCOSE 134 mg/dL (70-100); HEMOGLOBIN A1c% 6.3 % (4.27-6.07)
== END 2023-10-09 10:15 | disposition home or self-care (01) ==
LOC: LAB.N 10:14
PROVIDERS: ATTEND Physician Assistant
DX: E11.22 Type 2 diabetes mellitus with diabetic chronic kidney disease (principal)
CPT/HCPCS: 36415; 80048; 83036

== ENCOUNTER 2023-11-09 09:30 | Outpatient (CLI) | payer MEDICARE, BC, OTHER ==
[2023-11-09] MEDS: ALBUTEROL 1 PUFF INH STA (10:30)
== END 2023-11-09 09:31 | disposition home or self-care (01) ==
LOC: RT 09:30
PROVIDERS: ATTEND Physician Assistant
DX: R05.3 Chronic cough (principal)
CPT/HCPCS: 94010; 94060; 94729